=== PATIENT | male | born 1945 | race Caucasian/White ===

== ENCOUNTER → 2018-04-03 09:41 | Outpatient (CLI) | payer MEDICARE, SELFPAY ==
[2018-04-03 10:11] LABS: Add Manual Diff / Slide Review NO; Basophils Percent Auto 0.9 % (0-2); Eosinophils Percent Auto 6.3 % (2-4); Hematocrit 42.2 % (41-53); Hemoglobin 14.6 g/dL (13.5-17.5); Lymphocytes Percent Auto 18.6 % (25-40); Mean Corpuscular HGB Conc 34.5 % (30-36); Mean Corpuscular Hemoglobin 30.6 PG (26-34); Mean Corpuscular Volume 88.8 fL (80-100); Monocytes Percent Auto 11.3 % (3-14); Neutrophils Absolute Auto 5900 /uL (3000-5900); Neutrophils Percent Auto 62.9 % (50-75); Platelet Count 287 X10^3/uL (150-400); Red Blood Cell Count 4.75 X10^6/uL (4.5-5.9); Red Cell Distribution Width 13.2 % (11.6-14.8); White Blood Cell Count 9.4 X10^3/uL (4.5-11.0)
[2018-04-03 10:29] LABS: C-Reactive Protein Quant 5.2 mg/dL (<1.0); Erythrocyte Sedimentation Rate 7 MM/HR (0-15)
== END ==
PROVIDERS: PCP Family Medicine; Visit Provider Orthopaedic Surgery
DX: M25.462 Effusion, left knee (principal)
CPT/HCPCS: 36415; 85025; 85651; 86140

== ENCOUNTER 2018-04-03 16:05 | Inpatient (IN) | payer MEDICARE, SELFPAY ==
[2018-04-03] VITALS (11 sets, daily range): BP systolic 101–132; BP diastolic 65–83; PULSE 74–81; RESP 12–18; TEMP 36.1–37.2; O2SAT 95–100; BMI 25.0; BMI 25.9
[2018-04-03] MEDS: LACTATED RINGERS 1,000 ML 42 ML IV (17:05)
--- NOTE | 2018-04-03 17:06 | PM.PREOP ---
Pre-operative Note Interval Note Pre-op Check: Yes History & Physical Reviewed by Physician and Yes Exam Performed Changes: No
--- NOTE | 2018-04-03 17:06 | PM.OP.1 ---
Operative Date/Time/Diagnoses Date of procedure: 04/03/18 Time of procedure: 18:32 Pre-op diagnosis: Septic left knee after medial compartment arthroplasty Post-op diagnosis: same Procedure & Clinicians Procedure: Incision and drainage with polyethylene exchange left knee Same procedure as scheduled: Yes Indications: The patient presents today for incision and drainage of left septic knee after unicompartmental knee. The nature of the procedure including the risks and benefits, alternatives, postoperative course and expected outcome were discussed and all questions answered. Consent was obtained. Operative site confirmed and marked. Surgeon: Poncho Alexandre Click Yes if Unassisted: Yes Anesthesia Type: General and Local Operative Notes Findings: Significant erythema over the medial aspect of the knee. Purulent fluid was encountered within the knee. Cultures were taken and sent to the lab. The implant was intact. Closure Type: primary Specimen(s): other (Cultures) Implants & Drains: Hemovac drain. New polyethylene tray. Applied: drain(s) and implant(s) Estimated Blood Loss (mL): 20 Blood products transfused: none Procedure in detail: The patient was taken operative suite. The leg was prepped draped usual sterile fashion. The previous anterior incision was utilized and opened. Medial parapatellar arthrotomy was then made. There was purulent fluid within the knee. Cultures were taken and sent to the lab. The patient was then given both cefazolin and vancomycin IV. The polyethylene tray was removed. The implant was intact. The knee was then copiously irrigated with a total of 4 L of saline with Pulsavac irrigation. A new polyethylene tray was placed. A drain was placed within the knee joint. The knee was then filled with 1 g of powdered vancomycin. The arthrotomy was then closed with interrupted #1 Vicryl sutures. Subcutaneous tissue was closed with 2 Vicryl. The skin was closed with saritha. An Aquacel dressing was applied. The patient tolerated procedure well and was returned to current condition. Complications: none Condition: stable Disposition: PACU Plan for aftercare: The patient will be admitted to the hospital and started on IV antibiotics including cefazolin and vancomycin. We will await the results of his cultures and sensitivities. He will need a PICC line and a total of 6 weeks of IV antibiotics. Drain will be DC at 48 hr.
--- NOTE | 2018-04-03 17:51 | SUR.OPER ---
Supine on padded OR bed. Pillow under head, arms secured on padded armboards <90 degree abduction. Safety belt across torso. Non-operative leg secured with tape over blanket over lower leg. Operative leg secured in DeMayo/Anibal positioner. Foam padded brace at thigh of operative leg.
[2018-04-03] MEDS: CEFAZOLIN 2 GM/100 ML FROZ.PIGGY IV (17:56)
[2018-04-03] MEDS: VANCOMYCIN 1,000 MG VIAL 1000 MG INTRA-ARTI (18:04)
[2018-04-03] MEDS: VANCOMYCIN 1,000 MG/200 ML FROZ.PIGGY 200 MG IV (18:12)
[2018-04-03] MEDS: BUPIVACAINE 0.25% W/ EPI VIAL 50 ML INJ (18:18)
[2018-04-03] MEDS: OXYCODONE IR 5 MG TABLET PO (18:52)
--- NOTE | 2018-04-03 19:22 | SUR.PHASEI ---
patient transfered to room 212 with TRAVIS Gandhi. Vancomycin and LR still infusing. notified of patients admission and room.
[2018-04-03 19:46] LABS: Estimated Glomerular Filt Rate > 60.0 mL/min (>60)
[2018-04-03] MEDS: LACTATED RINGERS 1,000 ML 125 ML IV (19:59)
[2018-04-03] MEDS: SODIUM CHLORIDE 0.9% FLUSH 10 ML IV (20:05)
--- NOTE | 2018-04-03 22:50 | PC.NURSE ---
POST-OP Received pt at approximately 1905 via stretcher. A&Ox3, pleasant and cooperative. L knee with gonzalo wrap dressing and hemovac intact. pt c/o minimal pain rated 4/10 and denies need for pain medication at this time. ice pack maintained. pt declined scheduled evening ASA and tylenol as these are medication allergies. oriented to room and call light.
[2018-04-04] MEDS: CEFAZOLIN 2 GM/100 ML FROZ.PIGGY IV ×3 (01:23→19:40)
--- NOTE | 2018-04-04 03:16 | PC.NURSE ---
Cardiology Fellow S.N. Pt is alert and oriented x's 3. Pt is very pleasant and in good spirits. Left knee with gonzalo wrap dressing and hemovac. Hemovac intact and compressed. Assessed lower limbs for pitting, edema, tingling and circulation. pedal pulses present. Pt reports no tingling or numbness. Pt stated he was experiencing no pain and denied pain medication at this time. Refreshed ice pack and gave pt call light.
[2018-04-04 04:44] VITALS: BP 129/81; PULSE 69; RESP 14; TEMP 36.5; O2SAT 95
[2018-04-04] MEDS: LACTATED RINGERS 1,000 ML 125 ML IV (05:05)
[2018-04-04 05:39] LABS: Hematocrit 42.3 % (41-53); Hemoglobin 14.5 g/dL (13.5-17.5)
[2018-04-04] MEDS: VANCOMYCIN 1,000 MG/200 ML FROZ.PIGGY 200 MG IV ×2 (06:10→17:56)
[2018-04-04 08:00] VITALS: BP 128/60; PULSE 70; RESP 18; TEMP 36.6; O2SAT 98
--- NOTE | 2018-04-04 08:43 | CM.DANOTE ---
DCP: Case received, EMR reviewed and met with patient. Introduced self and role. DCP template completed with information currently available. Patient is a 72 year old male who admitted yesterday afternoon to the care of the hospitalist team. PCP: Dr. Snow. Payer: confirmed: Medicare. Patient diagnosed with septic left knee, had had an arthroplasty of the knee in January. Patient alert and oriented, pleasant, stated that he has been independent after initially having surgery, and he lives in [place] with his spouse. He has been working with outpatient therapy as well. P: DCP to continue to assess. Patient's goal is to return home, dependent upon on infection status and antibiotic therapy. Isatu Viera RN/Seafood Team Member
[2018-04-04] MEDS: ASPIRIN EC 81 MG TABLET PO ×2 (09:24→19:42)
[2018-04-04] MEDS: SODIUM CHLORIDE 0.9% FLUSH 10 ML IV (09:24)
--- NOTE | 2018-04-04 10:10 | CM.DPC ---
DCP Cont: Spoke to patient regarding discharge plan if he continues to need IV antibiotics. Gave Medicare choice list, and also mentioned the infusion clinic possibility. Stated that he would think about it when closer to discharge. Let him know that he would need to be here for 3 midnights to qualify for skilled stay. P: DCP to continue to assess, plan is still to be determined. Isatu Viera RN/Log Handling Equipment Operator
--- NOTE | 2018-04-04 10:50 | PT.IIE ---
Current Diagnoses Pyogenic arthritis, unspecified (04/03/18) Presence of left artificial knee joint (04/03/18) Surgery Performed Operation Date: 04/03/18 17:15 Actual Procedures p I&D Medial knee s/p Uni Knee; Poly exchange(Left) - Poncho Alexandre MD Medical History (Last Updated 04/03/18 @ 19:33 by Oksana Skinner RN) Sinusitis, chronic (Acute) Physical Therapy Inpatient Evaluation/Re-Eval M1 PT/OT-IP Prior Functional Status Start: 04/04/18 10:54 Freq: Status: Active Protocol: Document 04/04/18 10:50 [facility] (Rec: 04/04/18 11:05 [facility] [id number]) Medical Review Prior Functional Status Medical History Reviewed Yes Diet/Fluid Consistency Regular Communication WNL Mobility and Gait gait without device, community level distances Activities of Daily Living and IADL's indep. ADLs Social History Household Members spouse Living Arrangements House Number of Floors (Floors) Two Floors Number of Stairs To Enter/Railing? 8 steps B rails inside Home Environment Walk in Shower Home Equipment Straight Cane Additional Social History Comment pt had medial uni knee arthroplasty in January 2018, had just been d/c by PT prior to this infection. Pt underwent L knee I&D on 04/03/2018. M2 PT-IP Current Condition Start: 04/04/18 10:54 Freq: Status: Active Protocol: Document 04/04/18 10:50 RCC (Rec: 04/04/18 11:05 [facility] [id number]) Physical Therapy Current Condition Current Condition Evaluation Date 04/04/18 Treatment Diagnosis L uni knee I&D, impaired mobility Onset Date 04/03/18 Weight Bearing Status Weight Bearing Status Weight Bear as Tolerated M3 PT-IP Subjective Start: 04/04/18 10:54 Freq: Status: Active Protocol: Document 04/04/18 10:50 RCC (Rec: 04/04/18 11:05 [facility] [id number]) Subjective Physical Therapy Visit Type Type Initial Evaluation Visit Start Time 10:25 Visit Stop Time 10:50 Total Visit Minutes 25 Number of SYSTEM DISPATCHER Visits 0 Physical Therapy Visit Comments Patient Comments pt states that his knee is feeling better than prior to the I&D. M4 PT-IP Mobility and Gait Start: 04/04/18 10:54 Freq: Status: Active Protocol: Document 04/04/18 10:50 RCC (Rec: 04/04/18 11:05 [facility] [id number]) PT-Bed Mobility Assessment Supine to Sit Supine to Sit Independent Sit to Supine Sit to Supine Independent PT-Transfer Assessment Sit to and From Stand Sit to and from Stand Standby Assistance Equipment Transfer Assistive Device Gait Belt Transfers Transfer Destination Bed Toilet Transfer Technique Stand Step Pivot Transfer Ability Level of Assist Standby Assistance Comments Mobility Comments IV pole for UE assistance with standing and gait. Gait Assessment Gait Gait Assistance Required: Standby Assistance Distance (Feet) 300 Able to Maintain Weight Bearing Status Yes During Gait Assistive Devices Assistive Device Gait Belt Gait Deviations General Gait Pattern Decreased Stride Length Factors Limiting Gait Function Factors Limiting Gait Function Decreased Activity Tolerance Limited Range of Motion Pain Comments Gait Comments pt used IV pole for gait, mildly antalgic, limited knee extension due to swelling/pain PT-Balance Assessment Sitting Balance and Reactions Static Sitting Balance Ability Normal Dynamic Sitting Balance Ability Normal Standing Balance and Reactions Static Standing Balance Ability Good Dynamic Standing Balance Ability Good M5 PT-IP Objective Assessments Start: 04/04/18 10:54 Freq: Status: Active Protocol: Document 04/04/18 10:50 RCC (Rec: 04/04/18 11:05 [facility] [id number]) Orientation Orientation/Cognition Level of Alertness Alert Orientation Name Age Birthday Month Date Year Day of Week Place Situation Safety Awareness Understands Safety Issues Gross Range of Motion Lower Extremity ROM Assessment Left Impaired Impairments limited knee extension due to wrap, pain and swelling M6 PT-IP Treatment Start: 04/04/18 10:54 Freq: Status: Active Protocol: Document 04/04/18 10:50 RCC (Rec: 04/04/18 11:05 [facility] [id number]) Physical Therapy Treatment Education Education Provided Safety M7 PT-IP Assessment and Plan Start: 04/04/18 10:54 Freq: Status: Active Protocol: Document 04/04/18 10:50 RCC (Rec: 04/04/18 11:05 [facility] [id number]) PT Summary Assessment and Plan Potential Rehabilitation Potential Excellent Status of Condition at Evaluation Stable Summary Assessment Summary Post-I&D day 1 L knee. Pt able to ambulate using the IV pole for support, no loss of balance noted. Pt is below his prior functional level, and will need stair training prior to d/c. Depending on his course and how he recovers medically, he may need to return to OP PT if his strength and ROM do not return to baseline. Pt is appropriate for home d/c from PT after stair training. Goals Gait Goal Independent Gait Distance 300 Other Goals up/down 8 steps and SBA Days to Meet Goals 2 Frequency of Treatment Frequency Of Treatment Once a Day Treatment Plan Other Recommendations and Next Treatment stair & gait training. Focus Recommendations To Nursing Amount of Assist Needed Standby Assistance Discharge Recommendations PT Discharge Recommendations Home
--- NOTE | 2018-04-04 11:14 | PM.PNPO.1 ---
Subjective Date Patient Seen: 04/04/18 Time Patient Seen: 11:14 Interval history: Patient is postop day 1. Status post I and D with polyethylene exchange of left medial compartment arthroplasty by Dr. Alexandre. None no complaints of pain this morning. Has been up ambulating down the hallway. Currently receiving IV antibiotics, cefazolin and vancomycin. Awaiting results of cultures and sensitivities to determine which antibiotics the patient will be be discharged home with. also present in the room. Exam Vital Signs (past 8 hours): - 04/04/18 04:44 04/04/18 08:00 Temperature 97.7 F 97.8 F Pulse Rate 69 70 Respiratory Rate 14 18 Blood Pressure 129/81 128/60 Pulse Oximetry 95 98 Oxygen Delivery Method Room Air Narrative Exam Narrative: Patient in bed. Appears comfortable. Alert and orient x3. Left knee dressing intact with an Osman bandage overwrap. Hemovac drain in. Some swelling in the left knee. 5/5 left ankle strength. Bilateral calves soft nontender. Neurovascular status intact. Afebrile. Objective Labs Result Diagrams: 04/04/18 05:16 04/03/18 09:30 Labs: Laboratory Results - last 24 hr 04/03/18 04/04/18 09:30 05:16 Hgb 14.5 Hct 42.3 Creatinine 0.80 Estimated GFR > 60.0 Assessment & Plan Post-op Postoperative Procedures Operation Date: 04/03/18 17:15 Actual Procedures Side Surgeon p I&D Medial knee s/p Uni Knee; Poly exchange Left Poncho Alexandre MD Postop day 1. Hemovac drain to be left in for 1 more day then discontinued. Continue IV antibiotics with cefazolin and vancomycin. Microbiology culture still pending. Patient will need a PICC line and IV antibiotics for total 6 weeks. Activity as tolerated. Plan for DC home in next couple days. Quality VTE Deep Vein Thrombosis/Pulmonary Embolism Present on Admission: No
[2018-04-04 11:49] VITALS: BP 132/68; PULSE 80; RESP 18; TEMP 36.6; O2SAT 98
[2018-04-04 15:39] VITALS: PULSE 74; RESP 18; TEMP 36.8; O2SAT 96
[2018-04-04 19:35] VITALS: BP 111/58; PULSE 72; RESP 18; TEMP 36.8; O2SAT 92
[2018-04-05] VITALS (7 sets, daily range): BP systolic 103–122; BP diastolic 45–74; PULSE 65–86; RESP 18–19; TEMP 36.1–37; O2SAT 95–98
--- NOTE | 2018-04-05 01:28 | PC.NURSE ---
Addendum entered by Sabiha Falcon 04/05/18 06:59: Vanco on hold pending PICC Line. 30cc from hemovac. Hemovac removed and pressure dressing over site. Original Note: Addendum entered by Sabiha Falcon 04/05/18 06:58: IV DC'ed, Dr. Starkey ordered no PIV due to PICC line Order Original Note: Recruiting Consultant S.N. Pt is alert and oriented x's 3. Pt is in good spirits but very sleepy. He refused his SCDs due to interrupted sleep. Left knee with gonzalo wrap dressing and hemovac. Hemovac intact and compressed. Assessed lower limbs for pitting, edema, tingling and circulation. pedal pulses present. Pt stated he was experiencing no pain and denied pain medication at this time. Gave pt call light.
[2018-04-05] MEDS: CEFAZOLIN 2 GM/100 ML FROZ.PIGGY IV ×2 (02:59→20:34)
[2018-04-05 06:00] LABS: Add Manual Diff / Slide Review NO; Basophils Percent Auto 0.8 % (0-2); Eosinophils Percent Auto 3.2 % (2-4); Hematocrit 40.1 % (41-53); Hemoglobin 13.6 g/dL (13.5-17.5); Lymphocytes Percent Auto 23.4 % (25-40); Mean Corpuscular Hemoglobin 30.3 PG (26-34); Mean Corpuscular Volume 89.1 fL (80-100); Monocytes Percent Auto 7.9 % (3-14); Neutrophils Absolute Auto 6800 /uL (3000-5900); Neutrophils Percent Auto 64.7 % (50-75); Platelet Count 256 X10^3/uL (150-400); Red Blood Cell Count 4.51 X10^6/uL (4.5-5.9); Red Cell Distribution Width 13.1 % (11.6-14.8); White Blood Cell Count 10.5 X10^3/uL (4.5-11.0)
[2018-04-05 06:26] LABS: Vancomycin Trough 10.1 ug/mL (10-20)
[2018-04-05] MEDS: VANCOMYCIN 1,000 MG/200 ML FROZ.PIGGY 200 MG IV ×2 (06:35→21:03)
--- NOTE | 2018-04-05 07:45 | PM.PNPO.1 ---
Subjective Date Patient Seen: 04/05/18 Time Patient Seen: 07:46 Interval history: He is fairly comfortable since he has had his washout. Exam Vital Signs (past 8 hours): - 04/05/18 00:20 04/05/18 03:05 Temperature 97.9 F 96.9 F L Pulse Rate 86 86 Respiratory Rate 18 19 Blood Pressure 114/71 116/69 Pulse Oximetry 95 96 Oxygen Delivery Method Room Air Const Orientation: alert and oriented x3 Extrem Other: Left knee dressing clean dry intact. Soft calf easily wiggles toes. drain pulled earlier but 30/10 over last two shifts Objective Labs Result Diagrams: 04/05/18 05:30 04/03/18 09:30 Labs: Laboratory Results - last 24 hr 04/05/18 04/05/18 05:30 05:30 WBC 10.5 RBC 4.51 Hgb 13.6 Hct 40.1 L MCV 89.1 MCH 30.3 MCHC 34.0 RDW 13.1 Plt Count 256 Neut % (Auto) 64.7 Lymph % (Auto) 23.4 L [place] % (Auto) 7.9 Eos % (Auto) 3.2 Baso % (Auto) 0.8 Neut # (Auto) 6800 H Vancomycin Trough 10.1 Gram stain had scant gm (+) cocci and occasional epithelial cells, NGTD on cultures Assessment & Plan Post-op Postoperative Procedures Operation Date: 04/03/18 17:15 Actual Procedures Side Surgeon p I&D Medial knee s/p Uni Knee; Poly exchange Left Poncho Alexandre MD No growth to date on his cultures. We will give this 1 more day for growth. He is currently on vancomycin and Ancef. He should get his PICC line today. Probable discharge home on IV antibiotics tomorrow. Quality VTE Deep Vein Thrombosis/Pulmonary Embolism Present on Admission: No
[2018-04-05] MEDS: ASPIRIN EC 81 MG TABLET PO ×2 (08:37→21:03)
--- NOTE | 2018-04-05 11:10 | PC.NURSE ---
upon start of shift patient had no IV access (previous IV infiltrated and removed per retail shift supervisor RN0. Able to start new IV to right AC to infuse pending vancomycin as ordered. Infusion given slowly as patient has had sensitivity with veins and has now had infiltrations with previous 2 IV's. Near end of infusion, patient reported area starting to itch and feel swelling. Infusion stopped and area elevated and warm compress applied to area. Clarifying availability of patient to get PICC line today for further antibiotics. Waiting for return call for information. Patient comfortable and resting in bed sleeping at this time. Continue to follow.
--- NOTE | 2018-04-05 14:13 | CM.DPC ---
DCP/continued: Reviewed chart. Patient expected to have PICC line placed today for local intermodal truck driver IV abx. This CRUISE AGENT asked to touch base with patient about d/c plan this afternoon. Met with patient and spouse/Micheline at bedside explained CM/SW role. Patient alert and oriented during visit. Patient and spouse aware that patient will need long-term IV abx. Patient hopes to be able to do this as outpatient. At this time cultures pending therefore, dosing frequency, and abx unknown. Patient currently on Ancef q8hrs and vanco q12hrs. Patient and spouse aware that if patient continues to need multiple abx at different times of the day that best option may be SNF. Patient also aware of private pay option in the home and does not feel that this is feasible. Contracted Medicare SNF list provided to patient. Patient and spouse provided CRUISE AGENT with permission to give his name to [facility] for review. CRUISE AGENT placed call to [facility] and they will review for possible admit. [facility] aware that cultures pending and that first patient choice is for patient to go home and come to [facility] for outpatient IV abx instead of SNF. P: Home with outpatient IV vs. SNF. Patient and spouse aware that DCP picking up case tomorrow is DILAN Moctezuma
--- NOTE | 2018-04-05 14:53 | PC.NURSE ---
[facility] was notified and coming in to place PICC line this afternoon as soon as available. Patient updated on plan of care. Patient remains without complaint. Left knee dressing remains intact, +CMS, ambulating without difficulty. Call light within reach.
--- NOTE | 2018-04-05 16:19 | PT.IPTN ---
Current Diagnoses Pyogenic arthritis, unspecified (04/03/18) Presence of left artificial knee joint (04/03/18) Surgery Performed Operation Date: 04/03/18 17:15 Actual Procedures p I&D Medial knee s/p Uni Knee; Poly exchange(Left) - Poncho Alexandre MD Physical Therapy Treatment Note M2 PT-IP Current Condition Start: 04/04/18 10:54 Freq: Status: Active Protocol: Document 04/04/18 10:50 RCC (Rec: 04/04/18 11:05 RCC [id number]) Physical Therapy Current Condition Current Condition Evaluation Date 04/04/18 Treatment Diagnosis L uni knee I&D, impaired mobility Onset Date 04/03/18 Weight Bearing Status Weight Bearing Status Weight Bear as Tolerated M3 PT-IP Subjective Start: 04/04/18 10:54 Freq: Status: Active Protocol: Document 04/05/18 15:15 [facility] (Rec: 04/05/18 16:19 [facility] [id number]) Subjective Physical Therapy Visit Type Type Treatment Note Visit Start Time 15:15 Visit Stop Time 15:35 Total Visit Minutes 20 Number of FINISHER SPECIAL STOCKS Visits 1 Physical Therapy Visit Comments Patient Comments Pt willing to ambulate. Therapy Pain Assessment Pain When Pain Assessed During Mobility Pain Present Pain Present Denied Pain M4 PT-IP Mobility and Gait Start: 04/04/18 10:54 Freq: Status: Active Protocol: Document 04/05/18 15:15 [facility] (Rec: 04/05/18 16:19 [facility] [id number]) PT-Transfer Assessment Sit to and From Stand Sit to and from Stand Standby Assistance Equipment Transfer Assistive Device Gait Belt Transfers Transfer Destination Chair Transfer Technique Stand Step Pivot Transfer Ability Level of Assist Standby Assistance Comments Mobility Comments Pt able to transfer w/o AD. Gait Assessment Gait Gait Assistance Required: Contact Guard Assist Distance (Feet) 400 Able to Maintain Weight Bearing Status Yes During Gait Assistive Devices Assistive Device Gait Belt Factors Limiting Gait Function Factors Limiting Gait Function Decreased Activity Tolerance Limited Range of Motion Pain Comments Gait Comments Pt gait is mildly antalgic, limited knee extension due to swelling. Pt able to ambulate in mon without AD/CGA. Stair Climbing Assessment Evaluation Level of Assist On Stairs Independent Devices Stair Climbing Assistive Devices Left Railing Right Railing Technique/Endurance Stair Climbing Direction Ascend and Descend Stair Climbing Technique Step Over Step Step to Step Number of Steps Climbed 3 Query Text: Stair Climbing Set # Repetitions (reps) 2 Comments Stair Climbing Comments Pt performed step over step ascending and step to step descenting. M5 PT-IP Objective Assessments Start: 04/04/18 10:54 Freq: Status: Active Protocol: Document 04/04/18 10:50 RCC (Rec: 04/04/18 11:05 [facility] [id number]) Orientation Orientation/Cognition Level of Alertness Alert Orientation Name Age Birthday Month Date Year Day of Week Place Situation Safety Awareness Understands Safety Issues Gross Range of Motion Lower Extremity ROM Assessment Left Impaired Impairments limited knee extension due to wrap, pain and swelling M6 PT-IP Treatment Start: 04/04/18 10:54 Freq: Status: Active Protocol: Document 04/04/18 10:50 RCC (Rec: 04/04/18 11:05 RCC [id number]) Physical Therapy Treatment Education Education Provided Safety M7 PT-IP Assessment and Plan Start: 04/04/18 10:54 Freq: Status: Active Protocol: Document 04/05/18 15:15 [facility] (Rec: 04/05/18 16:19 [facility] [id number]) PT Summary Assessment and Plan Potential Rehabilitation Potential Excellent Summary Assessment Summary Pt ambulated w/o AD and no LOB . Pt successfully trialed stairs IND. Pt able to d/c home when medically stable. Goals Gait Goal Independent Gait Distance 300 Other Goals up/down 8 steps and SBA Days to Meet Goals 2 Frequency of Treatment Frequency Of Treatment Once a Day Treatment Plan Other Recommendations and Next Treatment gait training. Focus Recommendations To Nursing Amount of Assist Needed Standby Assistance Discharge Recommendations PT Discharge Recommendations Home
--- NOTE | 2018-04-05 19:31 | DI.RAD.S_ITS ---
PROCEDURE: XR CHEST FOR PICC 1V INDICATIONS: picc line placement TECHNIQUE: One view of the chest was acquired. COMPARISON: None. FINDINGS: Surgical changes and devices: There is a left PICC, the tip of which is projected over the cavoatrial junction. Lungs and pleura: No pleural effusions or pneumothorax. Lungs are clear. Mediastinum: Mediastinal contours appear normal. Heart size is normal. Bones and chest wall: No suspicious bony lesions. Overlying soft tissues appear unremarkable. IMPRESSION: No acute cardiopulmonary findings. Dictated by: Shani Ferrari M.D. on 04/05/2018 at 19:48 Approved by: Shani Ferrari M.D. on 04/05/2018 at 19:48
--- NOTE | 2018-04-05 20:40 | PC.NURSE ---
PICC PLACED TO LUE ANTIBIOTICS STARTED
[2018-04-05] MEDS: ACETAMINOPHEN 325 MG TABLET 975 MG PO (21:03)
[2018-04-06] MEDS: CEFAZOLIN 2 GM/100 ML FROZ.PIGGY IV ×2 (04:02→12:04)
[2018-04-06 04:35] VITALS: BP 113/62; PULSE 68; RESP 17; TEMP 36.4; O2SAT 95
--- NOTE | 2018-04-06 07:54 | P.PN_ITS ---
Subjective Date Patient Seen: 04/06/18 Time Patient Seen: 07:46 Interval history: Post op day 3 status post I&D Medial knee s/p Uni Knee with Dr. Alexandre. Patient is sitting upright in bed comfortably without any signs of distress. Patient reports that he is in no pain at this time. He is not currently on any pain medications at this time. Patient reports that he has not had a bowel movement since post op. Patient denies any fever, SOB, chest pain, nausea or vomiting. Overall patient is doing great. Exam Vital Signs (past 8 hours): - 04/06/18 04:35 Temperature 97.5 F L Pulse Rate 68 Respiratory Rate 17 Blood Pressure 113/62 Pulse Oximetry 95 Oxygen Delivery Method Room Air Narrative Exam Narrative: Patient is AOx3. Patient is a well developed male in no acute distress. PICC line noted in L upper arm. Left knee SEUN bandage noted. Left knee dressing is CDI. Radial and dorsalis pedis pulses are 2+ and symmetric. Sensation to light touch intact bilaterally on the LE. No neurological deficit noted. Strength is 5/5 in dorsiflex, plantarflex and presto log operator bilaterally. Calfs are non tender, soft and compressible. Objective Labs Result Diagrams: 04/05/18 05:30 04/03/18 09:30 Assessment & Plan Post-op Postoperative Procedures Operation Date: 04/03/18 17:15 Actual Procedures Side Surgeon p I&D Medial knee s/p Uni Knee; Poly exchange Left Poncho Alexandre MD Postoperative day: 3 Postoperative status: doing well Postoperative plan: routine post-op care Postoperative plan narrative: No growth to date on cultures. Will continue to wait until final growth results. Currently on Vancomycin and Ancef. Start Dulcolax for constipation. Likely to be discharged home on IV antibiotics later today or tomorrow. Time Spent With Patient less than 15 minutes Quality VTE Deep Vein Thrombosis/Pulmonary Embolism Present on Admission: No
[2018-04-06 08:37] VITALS: BP 128/75; PULSE 68; RESP 17; TEMP 36.3; O2SAT 97
[2018-04-06] MEDS: ASPIRIN EC 81 MG TABLET PO (09:17)
[2018-04-06] MEDS: VANCOMYCIN 1,000 MG/200 ML FROZ.PIGGY 200 MG IV (09:25)
--- NOTE | 2018-04-06 09:27 | PT.IPTN ---
Current Diagnoses Pyogenic arthritis, unspecified (04/03/18) Presence of left artificial knee joint (04/03/18) Surgery Performed Operation Date: 04/03/18 17:15 Actual Procedures p I&D Medial knee s/p Uni Knee; Poly exchange(Left) - Poncho Alexandre MD Physical Therapy Treatment Note M2 PT-IP Current Condition Start: 04/04/18 10:54 Freq: Status: Active Protocol: Document 04/04/18 10:50 RCC (Rec: 04/04/18 11:05 RCC [id number]) Physical Therapy Current Condition Current Condition Evaluation Date 04/04/18 Treatment Diagnosis L uni knee I&D, impaired mobility Onset Date 04/03/18 Weight Bearing Status Weight Bearing Status Weight Bear as Tolerated M3 PT-IP Subjective Start: 04/04/18 10:54 Freq: Status: Active Protocol: Document 04/06/18 08:55 CLB (Rec: 04/06/18 09:27 CLB [id number]) Subjective Physical Therapy Visit Type Type Treatment Note Visit Start Time 08:55 Visit Stop Time 09:18 Total Visit Minutes 23 Number of LARGE SHEETFED PRESS OPERATOR Visits 2 Physical Therapy Visit Comments Patient Comments Pt willing to ambulate. Therapy Pain Assessment Pain When Pain Assessed During Mobility Pain Present Pain Present Denied Pain M4 PT-IP Mobility and Gait Start: 04/04/18 10:54 Freq: Status: Active Protocol: Document 04/06/18 08:55 CLB (Rec: 04/06/18 09:27 CLB [id number]) PT-Bed Mobility Assessment Supine to Sit Supine to Sit Independent Sit to Supine Sit to Supine Independent PT-Transfer Assessment Sit to and From Stand Sit to and from Stand Standby Assistance Equipment Transfer Assistive Device Gait Belt Transfers Transfer Destination Bed Transfer Technique Stand Step Pivot Transfer Ability Level of Assist Standby Assistance Comments Mobility Comments Pt able to transfer w/o AD. Gait Assessment Gait Gait Assistance Required: Standby Assistance Distance (Feet) 400 Assistive Devices Assistive Device Gait Belt Factors Limiting Gait Function Factors Limiting Gait Function Decreased Activity Tolerance Limited Range of Motion Pain Comments Gait Comments Pt gait is mildly antalgic, limited knee extension due to swelling. Pt able to ambulate in mon without AD/SBA. Stair Climbing Assessment Evaluation Level of Assist On Stairs Independent Devices Stair Climbing Assistive Devices Left Railing Right Railing Technique/Endurance Stair Climbing Direction Ascend and Descend Stair Climbing Technique Step Over Step Number of Steps Climbed 3 Query Text: Stair Climbing Set # Repetitions (reps) 3 M5 PT-IP Objective Assessments Start: 04/04/18 10:54 Freq: Status: Active Protocol: Document 04/04/18 10:50 RCC (Rec: 04/04/18 11:05 RCC [id number]) Orientation Orientation/Cognition Level of Alertness Alert Orientation Name Age Birthday Month Date Year Day of Week Place Situation Safety Awareness Understands Safety Issues Gross Range of Motion Lower Extremity ROM Assessment Left Impaired Impairments limited knee extension due to wrap, pain and swelling M6 PT-IP Treatment Start: 04/04/18 10:54 Freq: Status: Active Protocol: Document 04/04/18 10:50 RCC (Rec: 04/04/18 11:05 RCC [id number]) Physical Therapy Treatment Education Education Provided Safety M7 PT-IP Assessment and Plan Start: 04/04/18 10:54 Freq: Status: Active Protocol: Document 04/06/18 08:55 CLB (Rec: 04/06/18 09:27 CLB [id number]) PT Summary Assessment and Plan Potential Rehabilitation Potential Excellent Summary Assessment Summary Pt ambulated w/o AD/SBA and no LOB. Pt successfully trialed stairs IND. Pt able to d/c home when medically stable. Goals Gait Goal Independent Gait Distance 300 Other Goals up/down 8 steps and SBA Days to Meet Goals 2 Frequency of Treatment Frequency Of Treatment Once a Day Treatment Plan Other Recommendations and Next Treatment gait training. Focus Recommendations To Nursing Amount of Assist Needed Standby Assistance Discharge Recommendations PT Discharge Recommendations Home
[2018-04-06] MEDS: BISACODYL 5 MG TABLET PO (12:03)
[2018-04-06] MEDS: SODIUM CHLORIDE 0.9% FLUSH 10 ML IV (12:05)
[2018-04-06 13:41] VITALS: BP 100/60; PULSE 66; RESP 16; TEMP 36.8; O2SAT 96
--- NOTE | 2018-04-06 14:20 | PT.IPTN ---
Current Diagnoses Pyogenic arthritis, unspecified (04/03/18) Presence of left artificial knee joint (04/03/18) Surgery Performed Operation Date: 04/03/18 17:15 Actual Procedures p I&D Medial knee s/p Uni Knee; Poly exchange(Left) - Poncho Alexandre MD Physical Therapy Discharge Note Physical Therapy Visit Type Type Discharge Summary Notes Pt has reached his optimal functional status and has no other acute PT goals/needs. Acute PT will sign off with the anticipation that pt will continue to mobilize with nursing staff.
--- NOTE | 2018-04-06 14:51 | PC.NURSE ---
Shift summary: Alert and oriented X3. Up indep in room, gait steady without assistive device. Showered independently today. Aquacel dressing to L knee C/D/I. CMS+, PP+. Denies pain or discomfort. Denies fever/chills. Still waiting on final sensitivities on wound culture. Contact isolation dc'd (not Staph in the wound culture). PICC line in LUE working well and with good blood return. Able to make needs known and calls appropriately,
--- NOTE | 2018-04-06 15:31 | CM.DPC ---
Addendum entered by Mireille Lamas LPN 04/07/18 10:08: Alerted this morning by ortho NAOMIE Martinez that Dr. Alexandre d/c'd pt to home last night after deciding on IV Vanco 2x day for 6 weeks and told him that [facility] would follow up today on the [facility] referral. Left a copy of the script for same. Received then a call at 0800 from lab saying that this pt was there and wondering how to get his antibitic. Directed pt to [facility] with idea to wait until the referral was completed. Called Dixie/ly at Infusion Clinic. At her direction did fax over the script. She is able to access the EMR for more information. She said she would set pt up on the schedule this morning. Original Note: DCP: continued: case received, EMR reviewed, conferred with TRAVIS Ontiveros and met with pt and his . Micheline. Went over the details of the ortho NAOMIE Stout's note of early this morning. Pt and Micheline identify there plan at d/c as home with the infusion clinic antibiotics as an outpt. Pt confirms he does not have a Medicare supplement nor Medicare Pt D plan. He does have a [employer] plan but says this is N/A as his issues are related to the uni knee surgery and all has been under the Medicare. He says he is a limited user of health care at this point and thus has preferred to pay out of pocket for what Medicare does not cover. His has chronic medical issues and extensive insuranance coverage. Both are aware that Medicare would cover his care for 20 days at a snf with the antibiotic need but even though it may be more costly to them they prefer the Infusion clinic. P: at this point pt is very eager for home but aware of the importance of waiting for the final determination of antibiotic therapy. This is reportedly to be only one or 2 times per day. If all in place by tomorrow morning pt will have the one dose here and then go home and have next dose at Infusion clinic. Agreed to check in early tomorrow and follow accordingly. P: home tomorrow if all in place as per above
--- NOTE | 2018-04-06 16:14 | PM.DS.1 ---
History of Present Illness Date Patient Seen: 04/06/18 Time Patient Seen: 16:14 Chief complaint: [id number] I&D LEFT KNEE W/POLY LINER EXCH Narrative: The patient presented for incision and drainage of left septic knee after unicompartmental knee. The nature of the procedure including the risks and benefits, alternatives, postoperative course and expected outcome were discussed and all questions answered. Consent was obtained. Operative site confirmed and marked. Discharge Providers Date of admission: 04/03/18 16:05 Primary care physician: Tristan Snow MD Consults: 04/03/18 19:16 Consult to Discharge Planning Routine Comment: Consult to Physical Therapy Evaluate & Treat Comment: Physician Instructions: postop TKA protocol Consult to Respiratory Therapy Evaluate & Treat Comment: Physician Instructions: Evaluate and treat Discharge provider: Argelia Chan PA-C Discharge Date: 04/06/18 Summary Discharge Diagnosis: Septic left knee after medial compartment arthroplasty Hospital Course: Patient admitted to hospital for the above mentioned procedure. Patient tolerated procedure well and transferred to floor and seen by physical therapy who recommended he be discharged home. Pain is well managed. Patient is home to assist him. Patient is ready to go home and is safe to do so. Cultures grew Enterococcus of the L knee, he will be discharged on IV Vancomycin. Status at Discharge Functional status at discharge: uses cane/walker Overall status at discharge: patient is progressing back to baseline Time Spent with Patient Less than 30 minutes Exam Vital Signs (past 8 hours): - 04/06/18 08:37 04/06/18 13:41 Temperature 97.4 F L 98.2 F Pulse Rate 68 66 Respiratory Rate 17 16 Blood Pressure 128/75 100/60 Pulse Oximetry 97 96 Oxygen Delivery Method Room Air Narrative Exam Narrative: Patient is AOx3. He is a pleasant male in no acute distress. L knee dressing is CDI. Dorsalis pedis and radial pulses 2+ and symmetric. Sensation to light touch intact in LE bilaterally. Muscle strength 5/5 in dorsiflexion, plantarflexion and manager news bilaterally. Calfs are non tender, soft and compressible bilaterally. Objective Labs Result Diagrams: 04/05/18 05:30 04/03/18 09:30 Discharge Plan Discharge Plan Patient Disposition: Home Discharge comment: Take Tylenol for pain as needed. Discharge Med Rec/Prescriptions Prescriptions: New vancomycin 1,000 mg Recon Soln 1 gram IV BID 42 Days Qty: 84 RF: 0 Continue aspirin [Aspirin Low Dose] 81 mg Tablet,Delayed Release (Dr/Ec) 81 mg PO DAILY RF: 0 loratadine 10 mg Tablet 10 mg PO BEDTIME RF: 0 Follow up/Referrals: Poncho Alexandre MD [Physician] - (Follow Up at [facility] in 10-14 days. Call to office to schedule appointment or address any concerns.) Provider Discharge Instructions Diet: Diet as Tolerated Activity: as tolerated. use cane/walker as needed for ambulation Cold/Heat Therapy: ice compress as needed Skin/Wound/Dressing Care Report to your healthcare provider any signs of infection, such as:: chills, fever, night sweats, increased pain and unusual drainage Dressing: keep clean and dry Visit Report/Discharge Packet Instructions: DI for Incision and Drainage of a Joint Visit Report Forms: Stroke Signs & Symptoms Discharge Data Primary Care Provider: Tristan Snow Attending Provider: Poncho Alexandre Admit Date/Time: 04/03/18 16:05 Quality VTE Deep Vein Thrombosis/Pulmonary Embolism Present on Admission: No
--- NOTE | 2018-04-06 16:24 | P.DS_ITS ---
History of Present Illness Date Patient Seen: 04/06/18 Time Patient Seen: 16:14 Chief complaint: [id number] I&D LEFT KNEE W/POLY LINER EXCH Narrative: The patient presented for incision and drainage of left septic knee after unicompartmental knee. The nature of the procedure including the risks and benefits, alternatives, postoperative course and expected outcome were discussed and all questions answered. Consent was obtained. Operative site confirmed and marked. Discharge Providers Date of admission: 04/03/18 16:05 Primary care physician: Tristan Snow MD Consults: 04/03/18 19:16 Consult to Discharge Planning Routine Comment: Consult to Physical Therapy Evaluate & Treat Comment: Physician Instructions: postop TKA protocol Consult to Respiratory Therapy Evaluate & Treat Comment: Physician Instructions: Evaluate and treat Discharge provider: Argelia Chan PA-C Discharge Date: 04/06/18 Summary Discharge Diagnosis: Septic left knee after medial compartment arthroplasty Hospital Course: Patient admitted to hospital for the above mentioned procedure. Patient tolerated procedure well and transferred to floor and seen by physical therapy who recommended he be discharged home. Pain is well managed. Patient is home to assist him. Patient is ready to go home and is safe to do so. Cultures grew Enterococcus of the L knee, he will be discharged on IV Vancomycin. Status at Discharge Functional status at discharge: uses cane/walker Overall status at discharge: patient is progressing back to baseline Time Spent with Patient Less than 30 minutes Exam Vital Signs (past 8 hours): - 04/06/18 08:37 04/06/18 13:41 Temperature 97.4 F L 98.2 F Pulse Rate 68 66 Respiratory Rate 17 16 Blood Pressure 128/75 100/60 Pulse Oximetry 97 96 Oxygen Delivery Method Room Air Narrative Exam Narrative: Patient is AOx3. He is a pleasant male in no acute distress. L knee dressing is CDI. Dorsalis pedis and radial pulses 2+ and symmetric. Sensation to light touch intact in LE bilaterally. Muscle strength 5/5 in dorsiflexion, plantarflexion and motel front desk clerk bilaterally. Calfs are non tender, soft and compressible bilaterally. Objective Labs Result Diagrams: 04/05/18 05:30 04/03/18 09:30 Discharge Plan Discharge Plan Patient Disposition: Home Discharge comment: Take Tylenol for pain as needed. Discharge Med Rec/Prescriptions Prescriptions: New vancomycin 1,000 mg Recon Soln 1 gram IV BID 42 Days Qty: 84 RF: 0 Continue aspirin [Aspirin Low Dose] 81 mg Tablet,Delayed Release (Dr/Ec) 81 mg PO DAILY RF: 0 loratadine 10 mg Tablet 10 mg PO BEDTIME RF: 0 Follow up/Referrals: Poncho Alexandre MD [Physician] - (Follow Up at [facility] in 10-14 days. Call to office to schedule appointment or address any concerns.) Provider Discharge Instructions Diet: Diet as Tolerated Activity: as tolerated. use cane/walker as needed for ambulation Cold/Heat Therapy: ice compress as needed Skin/Wound/Dressing Care Report to your healthcare provider any signs of infection, such as:: chills, fever, night sweats, increased pain and unusual drainage Dressing: keep clean and dry Visit Report/Discharge Packet Instructions: DI for Incision and Drainage of a Joint Visit Report Forms: Stroke Signs & Symptoms Discharge Data Primary Care Provider: Tristan Snow Attending Provider: Poncho Alexandre Admit Date/Time: 04/03/18 16:05 Quality VTE Deep Vein Thrombosis/Pulmonary Embolism Present on Admission: No
--- NOTE | 2018-04-06 17:26 | PC.NURSE ---
Discharge Note Pt A&O, VSS, 96% on RA. No complaints of pain. Discharge instructions given without question or concerns. All belongings and discharge instructions sent to pt. Pt aware of need to follow-up twice a day with the infusion clinic for IV antibiotics. Prescription given to CM to arrange infusions starting tomorrow. Pt wheeled down to personal vehicle with .
== END 2018-04-06 17:25 | disposition home or self-care (01) | DRG 486 ==
PROVIDERS: Physician Assistant; Admitting Provider Orthopaedic Surgery; Family Provider Family Medicine; PCP Family Medicine; Visit Provider Orthopaedic Surgery
PROC: 0SPD09Z Removal of Liner from Left Knee Joint, Open Approach (ICD-10-PCS; CPT 27446; principal; 2018-04-03 17:15)
DX: T84.54XA Infection and inflammatory reaction due to internal left knee prosthesis, initial encounter (principal); M00.9 Pyogenic arthritis, unspecified; Y79.2 Prosthetic and other implants, materials and accessory orthopedic devices associated with adverse incidents; B95.2 Enterococcus as the cause of diseases classified elsewhere
CPT/HCPCS: 36415; 36569; 80202; 82565; 85014; 85018; 85025; 85651; 86140; 87070; 87075; 87077; 87186; 87205; 97116; 97161; 97530; C1776; J0690; J1100; J2405; J2704; J3010; J3370

== ENCOUNTER → 2018-04-10 08:19 | Outpatient (CLI) | payer MEDICARE, SELFPAY ==
[2018-04-03 19:25] VITALS: BMI 25.9
[2018-04-10 09:39] LABS: Vancomycin Trough 12.6 ug/mL (10-20)
[2018-04-11 09:18] LABS: Vancomycin Trough 15.3 ug/mL (10-20)
== END ==
PROVIDERS: PCP Family Medicine; Visit Provider Physician Assistant Surgical
DX: M00.9 Pyogenic arthritis, unspecified (principal); T81.4XXA Infection following a procedure, initial encounter
CPT/HCPCS: 80202

== ENCOUNTER → 2018-05-06 12:29 | Outpatient (CLI) | payer MEDICARE, SELFPAY ==
[2018-04-03 19:25] VITALS: BMI 25.9
--- NOTE | 2018-05-06 12:32 | DI.RAD.S_ITS ---
PROCEDURE: FL GUIDED PICC PLACEMENT INDICATIONS: picc line placement COMPARISON: None. FINDINGS: PICC was placed by the intravenous therapy team from the right side. Fluoroscopic spot film demonstrates tip of PICC projected over the cavoatrial junction. IMPRESSION: Tip of PICC is projected over the cavoatrial junction. Dictated by: Shani Ferrari M.D. on 05/06/2018 at 17:00 Approved by: Shani Ferrari M.D. on 05/06/2018 at 17:01
== END ==
PROVIDERS: Visit Provider Orthopaedic Surgery
DX: Z95.828 Presence of other vascular implants and grafts (principal)
CPT/HCPCS: 36569; 77001

== ENCOUNTER → 2018-05-11 13:26 | Outpatient (CLI) | payer MEDICARE, SELFPAY ==
[2018-04-03 19:25] VITALS: BMI 25.9
[2018-05-11 14:15] LABS: Add Manual Diff / Slide Review NO; Basophils Percent Auto 1.5 % (0-2); Eosinophils Percent Auto 10.8 % (2-4); Hematocrit 41.7 % (41-53); Hemoglobin 13.9 g/dL (13.5-17.5); Lymphocytes Percent Auto 15.9 % (25-40); Mean Corpuscular HGB Conc 33.2 % (30-36); Mean Corpuscular Hemoglobin 29.4 PG (26-34); Mean Corpuscular Volume 88.5 fL (80-100); Monocytes Percent Auto 11.2 % (3-14); Neutrophils Absolute Auto 3600 /uL (3000-5900); Neutrophils Percent Auto 60.6 % (50-75); Platelet Count 213 X10^3/uL (150-400); Red Blood Cell Count 4.71 X10^6/uL (4.5-5.9); Red Cell Distribution Width 14.1 % (11.6-14.8); White Blood Cell Count 5.9 X10^3/uL (4.5-11.0)
[2018-05-11 14:37] LABS: C-Reactive Protein Quant 0.8 mg/dL (<1.0)
[2018-05-11 14:54] LABS: Erythrocyte Sedimentation Rate 4 MM/HR (0-15)
== END ==
PROVIDERS: Family Provider Family Medicine; Visit Provider Orthopaedic Surgery
DX: T84.54XA Infection and inflammatory reaction due to internal left knee prosthesis, initial encounter (principal); Z96.652 Presence of left artificial knee joint
CPT/HCPCS: 36415; 85025; 85651; 86140

== ENCOUNTER 2018-05-18 08:30 | Oncology outpatient (ONC) | payer MEDICARE, SELFPAY ==
[2018-04-03 19:25] VITALS: BMI 25.9
[2018-04-07] MEDS: VANCOMYCIN 1,000 MG/200 ML FROZ.PIGGY 200 MG IV ×2 (09:21→20:32)
[2018-04-07 09:32] VITALS: BP 144/84; PULSE 63; RESP 16; TEMP 36.4; O2SAT 99
--- NOTE | 2018-04-07 09:46 | ONC.SCHED ---
Patient wanted an estimate on what is copay amount would be. Spoke to Sabiha Gill in patient accounts and she did a rough estimate that would be about $50 a dose and since he gets this twice a day it would be $100 a day. The patient was told this was a rough estimate by Shilpi Askew and he was ok with that.
[2018-04-08] MEDS: VANCOMYCIN 1,000 MG/200 ML FROZ.PIGGY 200 MG IV ×2 (08:41→20:24)
[2018-04-08 08:45] VITALS: BP 123/88; PULSE 69; RESP 16; TEMP 36.7; O2SAT 98
[2018-04-08 20:29] VITALS: BP 121/74; PULSE 81; RESP 20; TEMP 36.3
[2018-04-08 21:33] VITALS: BP 106/77; PULSE 77; RESP 18; TEMP 36.6
[2018-04-09] MEDS: VANCOMYCIN 1,000 MG/200 ML FROZ.PIGGY 200 MG IV (08:50)
[2018-04-09 09:02] LABS: Estimated Glomerular Filt Rate > 60.0 mL/min (>60)
[2018-04-09 09:23] VITALS: BP 108/71; PULSE 66; RESP 16; TEMP 36.3; O2SAT 98
[2018-04-09 09:39] LABS: Vancomycin Trough 9.3 ug/mL (10-20)
[2018-04-09 20:30] VITALS: BP 111/69; PULSE 82; RESP 18; TEMP 36.8
[2018-04-09] MEDS: VANCOMYCIN 1,500 MG in SODIUM CHLORIDE 0.9% 500 ML 333.333 ML IV (20:35)
[2018-04-09 22:03] VITALS: O2SAT 99
--- NOTE | 2018-04-09 22:03 | PC.NURSE ---
Pt ambulatory to room 202 for vancomycin infusion. Vital signs taken and recorded. Dual lumen PICC to left upper arm with scant amount fresh blood noted around insertion site contained within tegaderm and distally to outer edges of coversite dressing. Pt explains this dressing was changed this morning and pt states dressing is requiring daily changes d/t the same scenario. Offered to change dressing for pt and pt declined. Will cover with absorbent dressing (ABD pad) and netting following infusion. Pt verbalizes agreement with this plan. Able to draw blood easily from white port and flush with saline without difficulty prior to vanco infusion.
--- NOTE | 2018-04-10 09:24 | PC.NURSE ---
Pt arrived for vanco infusion, Pt settled to room. VSS.
[2018-04-10 09:25] VITALS: BP 119/68; PULSE 70; RESP 16; TEMP 36.6
--- NOTE | 2018-04-10 11:38 | PC.NURSE ---
Pt tolerated ABX infusion. DL PICC flushed appropriately at end of tranfusion. Pt collected belongings and on the way home.
[2018-04-10] MEDS: VANCOMYCIN 1,500 MG in SODIUM CHLORIDE 0.9% 500 ML 333 ML IV (20:37)
[2018-04-10 20:39] VITALS: BP 136/69; PULSE 86; RESP 12; TEMP 36.3; O2SAT 97
--- NOTE | 2018-04-10 22:48 | PC.NURSE ---
Pt ambulatory to room 201 for vancomycin infusion. Dual lumen PICC to LUE white port draws blood easily and flushes without difficulty. Noted dressing has small amount contained bloody drainage. Pt declines offer to change PICC dressing. Dressing was reinforced distally with medipore tape and catheter is intact to LUE. Infusion completed and pt ambulatory to home. Left hospital in stable condition.
[2018-04-11 08:24] VITALS: BP 132/65; PULSE 77; RESP 16; TEMP 36.7; O2SAT 99
--- NOTE | 2018-04-11 08:56 | PC.NURSE ---
Addendum entered by Marti Recinos R.N. 04/11/18 11:45: Infusion completed, iv flushed with saline and heparin and Pt departed. Original Note: Addendum entered by Marti Recinos R.N. 04/11/18 09:57: Pt now has Vanco infusing as ordered. Pt denies needs at this time. Pt given juice to drink and agrees to call for assistance as needed. Original Note: Addendum entered by Marti Recinos R.N. 04/11/18 09:37: Lab reports Vanco Trough result as 15.2. It has not shown up on the Pt's result screen. Verified with Lab [facility] that 15.2 was the result for Jeremy Salazar. Spoke with Tawanna in Pharmacy and she stated she was comfortable with the result as that was the expected result. Original Note: Pt here for Vancomycin infusion as scheduled. MAGO PICC line flushes well and had good blood return for vanco trough. Line flushed post draw and cap replaced. Awaiting trough results. Pt states he is feeling well and has no pain. Pt is afebrile and states he is feeling well today.
[2018-04-11] MEDS: VANCOMYCIN TROUGH 1 REQUEST MISC (09:05)
[2018-04-11] MEDS: VANCOMYCIN 1,500 MG in SODIUM CHLORIDE 0.9% 500 ML 333 ML IV ×2 (09:50→20:35)
--- NOTE | 2018-04-11 20:58 | PC.NURSE ---
Addendum entered by Mey Hernández R.N. 04/11/18 22:31: VSS. 117/66, 73, 98%, 16RR. Completion of Abx transfusion, patient to return in the morning. Original Note: Gretchen shift note: Infusion center patient arrived to for administration of Vancomycin IV via double port PICC line to MAGO. Patient received 1GM IV BID and will return in the AM. Patient awake, alert, and very pleasant. Ambulated to room with steady gait, independently. IVF infusing as ordered.
[2018-04-12] MEDS: VANCOMYCIN 1,500 MG in SODIUM CHLORIDE 0.9% 500 ML 333 ML IV ×2 (08:43→20:27)
[2018-04-12 20:24] VITALS: BP 128/72; PULSE 64; RESP 18; TEMP 36.6; O2SAT 96
--- NOTE | 2018-04-12 22:14 | PC.NURSE ---
Infusion Note Pt arrived to floor from home for vancomycin infusion. A&O, VSS, no complaints of pain. Vancomycin infused in room, 202. At the end of infusion PICC line saline flushed and heparin locked w/ 5ml of 10u/ml. Pt left home 2215 w/o questions or concerns.
[2018-04-13] MEDS: VANCOMYCIN 1,500 MG in SODIUM CHLORIDE 0.9% 500 ML 333 ML IV ×2 (08:38→20:20)
[2018-04-13 08:45] VITALS: BP 145/83; PULSE 65; RESP 16; TEMP 36.6; O2SAT 99
[2018-04-13 20:28] VITALS: BP 139/75; PULSE 65; RESP 18; TEMP 36.5
--- NOTE | 2018-04-13 20:29 | PC.NURSE ---
Addendum entered by Rehana Wilburn R.N. 04/13/18 22:13: infusion complete, pt tolerated well Original Note: pt ambulated up to , vanco infusion started in room 201. picc flushed well. pt denies any discomfort
[2018-04-14] MEDS: VANCOMYCIN 1,500 MG in SODIUM CHLORIDE 0.9% 500 ML 333 ML IV ×2 (08:40→20:16)
[2018-04-14 08:44] VITALS: BP 116/73; PULSE 65; RESP 16; TEMP 36.7
--- NOTE | 2018-04-14 14:31 | PC.NURSE ---
Yvette from [facility] called regarding requesting a faxed copy of pts recent trough results. This was faxed per her request and she was also advised that another one would be drawn on 04/14 per pharmacy
[2018-04-14 20:26] VITALS: BP 131/70; PULSE 69; RESP 18; TEMP 36.7; O2SAT 96
--- NOTE | 2018-04-14 20:27 | PC.NURSE ---
Addendum entered by Rehana Wilburn R.N. 04/14/18 22:36: vanco infusion complete. pt tolerated well. Original Note: Patient ambulated to ac room 201 for vanco infusion. picc line patent. pt sitting in chair
[2018-04-15 09:05] VITALS: BP 125/75; PULSE 60; RESP 16; TEMP 36.7; O2SAT 97
[2018-04-15 09:21] LABS: Vancomycin Trough 18.5 ug/mL (10-20)
[2018-04-15] MEDS: VANCOMYCIN 1,500 MG in SODIUM CHLORIDE 0.9% 500 ML 333 ML IV (09:46)
[2018-04-15] MEDS: VANCOMYCIN 1,250 MG in SODIUM CHLORIDE 0.9% 250 ML IV (20:35)
[2018-04-16] MEDS: VANCOMYCIN 1,250 MG in SODIUM CHLORIDE 0.9% 250 ML IV ×2 (08:45→20:45)
[2018-04-16 09:03] VITALS: BP 139/60; PULSE 60; RESP 18; TEMP 37; O2SAT 99
[2018-04-16 20:28] VITALS: BP 123/74; PULSE 77; RESP 17; TEMP 37.1; O2SAT 97
--- NOTE | 2018-04-16 20:28 | PC.NURSE ---
Addendum entered by Hui Diane R.N. 04/16/18 22:08: Patient left facility A&OX4, denies any pain, and is ambulatory. IVF have finished infusing as ordered, VSS. Patient left facility at 2200. Original Note: Patient up to room at 2020 this shift. Patient oriented to call light and its use; oriented to BR and needed to call for assistance when IVF are in use for safety. VSS. Call light in reach. This RN offered warm blankets and food items, patient agreed to warm blankets. Patient is A&OX4 and ambulatory. Will continue to monitor.
[2018-04-16 22:07] VITALS: BP 123/68; PULSE 71; RESP 20; TEMP 36.6
[2018-04-17] MEDS: VANCOMYCIN 1,250 MG in SODIUM CHLORIDE 0.9% 250 ML IV ×2 (08:25→20:18)
[2018-04-17 20:24] VITALS: BP 123/73; PULSE 78; RESP 16; TEMP 36.7; O2SAT 97
--- NOTE | 2018-04-17 20:25 | PC.NURSE ---
Addendum entered by Rehana Wilburn R.N. 04/17/18 22:15: infusion complete 4790. pt tolerated well. Original Note: Patient ambulated to ac room 202 for vanco infusion. Pt without any complaints. picc line patent and flushed easily
[2018-04-18] MEDS: VANCOMYCIN 1,250 MG in SODIUM CHLORIDE 0.9% 250 ML IV ×2 (08:20→20:19)
[2018-04-18 08:28] VITALS: BP 137/71; PULSE 68; RESP 17; TEMP 37.2; O2SAT 99
[2018-04-18 20:26] VITALS: BP 122/72; PULSE 81; RESP 18; TEMP 36.8; O2SAT 97
--- NOTE | 2018-04-18 20:26 | PC.NURSE ---
Addendum entered by Rehana Wilburn R.N. 04/18/18 21:44: vanco infused. pt tolerated well. Original Note: Patient ambulated to ac room 201 for vanco infusion. no complaints. picc flushed well
[2018-04-19] MEDS: VANCOMYCIN 1,250 MG in SODIUM CHLORIDE 0.9% 250 ML IV ×2 (08:35→20:33)
[2018-04-19 08:40] VITALS: BP 133/65; PULSE 65; RESP 16; TEMP 36.5; O2SAT 98
--- NOTE | 2018-04-19 08:58 | PC.NURSE ---
Pt arrived via private car for 08:30 infusion. PICC flushes well. Dressing CDI.
[2018-04-19 20:32] VITALS: BP 124/70; PULSE 75; RESP 16; TEMP 36.4
[2018-04-20 08:33] VITALS: BP 120/72; PULSE 63; RESP 18; TEMP 36.4; O2SAT 99
[2018-04-20] MEDS: VANCOMYCIN 1,250 MG in SODIUM CHLORIDE 0.9% 250 ML IV ×2 (08:40→20:28)
[2018-04-20 08:57] LABS: Vancomycin Trough 15.7 ug/mL (10-20)
[2018-04-20 20:37] VITALS: BP 121/85; PULSE 85; RESP 18; TEMP 36.6
--- NOTE | 2018-04-20 21:23 | PC.NURSE ---
Addendum entered by Lissett Mccall R.N. 04/20/18 21:50: Vanco completed @ 0. PICC flushed as per protocol. Tolerated w/o incidence. Discharged in stable condition. Original Note: Pt arrived @ 2029 for IV infusion of Vanco. MAGO PICC patent, IV Vanco started as per protocol. VS [id number]
[2018-04-21] MEDS: VANCOMYCIN 1,250 MG in SODIUM CHLORIDE 0.9% 250 ML IV ×2 (08:42→20:15)
[2018-04-21 08:43] VITALS: BP 123/76; PULSE 69; RESP 16; TEMP 36.6; O2SAT 98
[2018-04-21 20:23] VITALS: BP 117/68; PULSE 76; RESP 18; TEMP 36.6; O2SAT 96
--- NOTE | 2018-04-21 20:24 | PC.NURSE ---
Pt arrived for vancomycin infusion. VSS. MAGO PICC intact/patent. Vanco infusing via pump as per orders. Pt denies an complaintsas
[2018-04-22] MEDS: VANCOMYCIN 1,250 MG in SODIUM CHLORIDE 0.9% 250 ML IV ×2 (08:37→20:37)
[2018-04-22 08:44] VITALS: BP 128/76; PULSE 65; RESP 18; TEMP 36.5
[2018-04-22 20:37] VITALS: BP 129/79; PULSE 71; RESP 18; TEMP 36.6; O2SAT 97
--- NOTE | 2018-04-22 20:39 | PC.NURSE ---
pt ambulated to ac room 201. picc flushed well. pt denies any discomfort.
[2018-04-23] MEDS: VANCOMYCIN 1,250 MG in SODIUM CHLORIDE 0.9% 250 ML IV ×2 (08:52→20:21)
[2018-04-23 10:01] VITALS: BP 120/77; PULSE 63; RESP 16; TEMP 36.6
[2018-04-23 20:29] VITALS: BP 128/79; PULSE 73; RESP 18; TEMP 36.4; O2SAT 98
[2018-04-24] MEDS: VANCOMYCIN 1,250 MG in SODIUM CHLORIDE 0.9% 250 ML IV ×2 (08:33→20:20)
[2018-04-24 08:42] VITALS: BP 132/79; PULSE 67; RESP 16; TEMP 36.5
[2018-04-24 20:24] VITALS: BP 129/69; PULSE 81; RESP 16; TEMP 36.5; O2SAT 97
[2018-04-25] MEDS: VANCOMYCIN 1,250 MG in SODIUM CHLORIDE 0.9% 250 ML IV (08:28)
[2018-04-25 08:40] VITALS: PULSE 62; RESP 16; TEMP 36.1; O2SAT 98
--- NOTE | 2018-04-25 20:52 | PC.NURSE ---
patient arrived on Acute Care for his evening dose of Vancomycin. VS : BP 127/76, p-69, r-16, T-97.8. Medication infused over 1 hr.
[2018-04-26 08:30] VITALS: BP 132/74; PULSE 68; RESP 16; TEMP 36; O2SAT 98
[2018-04-26] MEDS: VANCOMYCIN 1,250 MG in SODIUM CHLORIDE 0.9% 250 ML 205 ML IV ×2 (08:34→08:36)
[2018-04-26] MEDS: VANCOMYCIN 1,250 MG in SODIUM CHLORIDE 0.9% 250 ML IV (20:21)
--- NOTE | 2018-04-26 21:41 | PC.NURSE ---
INFUSION pt walked self on unit, rm 201, for vancomycin infusion. PICC flushed without any issues. IV antibiotic infused without complications. pt left unit at approximately 2152.
[2018-04-27] MEDS: VANCOMYCIN 1,250 MG in SODIUM CHLORIDE 0.9% 250 ML IV ×2 (08:55→20:21)
[2018-04-27 09:00] VITALS: BP 115/71; PULSE 63; RESP 16; TEMP 36.7; O2SAT 98
[2018-04-27 09:07] LABS: Estimated Glomerular Filt Rate > 60.0 mL/min (>60)
[2018-04-27 09:22] LABS: Vancomycin Trough 14.7 ug/mL (10-20)
[2018-04-27 20:29] VITALS: BP 124/69; PULSE 74; RESP 16; TEMP 36.4; O2SAT 99
--- NOTE | 2018-04-27 20:29 | PC.NURSE ---
Addendum entered by Rehana Wilburn R.N. 04/27/18 21:43: infusion complete, pt tolerated well Original Note: Patient ambulated up to ac to room 201 for vanco infusion. Picc flushed well. Pt without any complaints
[2018-04-28] MEDS: VANCOMYCIN 1,250 MG in SODIUM CHLORIDE 0.9% 250 ML IV ×2 (08:38→20:27)
[2018-04-28 08:47] VITALS: BP 134/75; PULSE 61; RESP 16; TEMP 36.4
[2018-04-28 20:28] VITALS: BP 125/69; PULSE 69; RESP 16; TEMP 36.5; O2SAT 99
[2018-04-29] MEDS: VANCOMYCIN 1,250 MG in SODIUM CHLORIDE 0.9% 250 ML IV ×2 (08:43→20:33)
[2018-04-29 09:00] VITALS: BP 143/88; PULSE 73; RESP 18; TEMP 37.1
[2018-04-30 08:57] VITALS: BP 155/65; PULSE 63; RESP 19; TEMP 36.6; O2SAT 99
[2018-04-30] MEDS: VANCOMYCIN 1,250 MG in SODIUM CHLORIDE 0.9% 250 ML IV ×2 (08:57→20:26)
[2018-04-30 20:24] VITALS: BP 137/70; PULSE 70; RESP 17; TEMP 36.6
[2018-04-30 21:58] VITALS: BP 122/71; PULSE 66; RESP 18; TEMP 36.7
[2018-05-01 08:35] VITALS: BP 119/72; PULSE 63; RESP 16; TEMP 36.6; O2SAT 98
[2018-05-01] MEDS: VANCOMYCIN 1,250 MG in SODIUM CHLORIDE 0.9% 250 ML IV ×2 (08:43→20:20)
[2018-05-01 20:40] VITALS: BP 125/66; PULSE 78; RESP 16; TEMP 36.6; O2SAT 98
[2018-05-02] MEDS: VANCOMYCIN 1,250 MG in SODIUM CHLORIDE 0.9% 250 ML IV ×2 (08:26→20:23)
--- NOTE | 2018-05-02 08:45 | PC.NURSE ---
Pt arrived from home for vanco infusion. Pt a&o. offers no overt c/o.
[2018-05-02 08:47] VITALS: BP 128/73; PULSE 68; RESP 16; TEMP 36.7
[2018-05-02 20:27] VITALS: BP 126/68; PULSE 78; RESP 16; TEMP 36.9; O2SAT 98
[2018-05-03] MEDS: VANCOMYCIN 1,250 MG in SODIUM CHLORIDE 0.9% 250 ML IV ×2 (08:40→20:23)
[2018-05-03 08:47] VITALS: BP 128/77; PULSE 66; RESP 16; TEMP 36.3
[2018-05-03 20:24] VITALS: BP 134/78; PULSE 71; RESP 16; TEMP 36.4; O2SAT 98
--- NOTE | 2018-05-03 20:24 | PC.NURSE ---
pt ambulated to ac room 201 for vanco infusion. picc flushed well, infusion started
[2018-05-04 08:50] VITALS: BP 122/78; PULSE 60; RESP 18; TEMP 36.6; O2SAT 99
[2018-05-04] MEDS: VANCOMYCIN 1,250 MG in SODIUM CHLORIDE 0.9% 250 ML IV ×2 (08:52→20:41)
[2018-05-04 09:02] LABS: Estimated Glomerular Filt Rate > 60.0 mL/min (>60)
[2018-05-05] MEDS: VANCOMYCIN 1,250 MG in SODIUM CHLORIDE 0.9% 250 ML IV ×2 (08:32→20:30)
[2018-05-05 08:36] VITALS: BP 134/78; PULSE 65; RESP 18; TEMP 36.6; O2SAT 99
[2018-05-06] MEDS: VANCOMYCIN 1,250 MG in SODIUM CHLORIDE 0.9% 250 ML IV ×2 (08:50→20:19)
[2018-05-06 08:54] VITALS: BP 130/71; PULSE 63; RESP 16; TEMP 36.5; O2SAT 99
[2018-05-06 20:25] VITALS: BP 140/82; PULSE 81; RESP 20; TEMP 36.5
[2018-05-07 09:08] VITALS: BP 124/77; PULSE 59; RESP 16; TEMP 36.6; O2SAT 98
[2018-05-07] MEDS: VANCOMYCIN 1,250 MG in SODIUM CHLORIDE 0.9% 250 ML IV ×2 (09:15→20:24)
[2018-05-07 20:26] VITALS: BP 120/71; PULSE 67; RESP 16; TEMP 36.6; O2SAT 98
[2018-05-08] MEDS: VANCOMYCIN 1,250 MG in SODIUM CHLORIDE 0.9% 250 ML IV ×2 (08:28→20:13)
[2018-05-08 09:33] VITALS: BP 135/79; PULSE 62; RESP 16; TEMP 36.6; O2SAT 100
[2018-05-08 20:25] VITALS: BP 128/71; PULSE 73; RESP 16; TEMP 36.7
--- NOTE | 2018-05-08 21:45 | PC.NURSE ---
Patient left facility A&Ox3, VSS, able to ambulate independently. IV antibiotics infused as ordered and RN flushed PICC line per protocol.
[2018-05-09 08:30] VITALS: BP 112/72; PULSE 71; RESP 16; TEMP 36.4
[2018-05-09] MEDS: VANCOMYCIN 1,250 MG in SODIUM CHLORIDE 0.9% 250 ML IV ×2 (08:41→20:29)
--- NOTE | 2018-05-09 08:49 | PC.NURSE ---
Addendum entered by Tanja Correa R.N. 05/09/18 10:03: Vanco infusion complete. PICC flushed per protocol, with brisk blood return. No issues. Pt left unit up ad yovani in no distress. Pt to drive himself home. Original Note: [facility] Day Shift-Pt arrived to unit into room 201 at approx 0825. Assessment at 0835, Pt A&OX4, denies pain, nausea, chest pain, any respiratory issue. States nothing new to report. AE clear throughout lung leonard, HR 68bpm and regular with 1 extra beat within 15 seconds faintly heard upon auscultation. VSS, afebrile. PICC to TORREY dressing CDI, flushes well with brisk blood return. Vancomycin infusion started at 0841. Call light within reach. Left pt in room, he stated he wanted to read his book.
[2018-05-09 09:58] VITALS: BP 132/79; PULSE 56; RESP 17; TEMP 36.5
[2018-05-10 08:26] VITALS: BP 119/61; PULSE 66; RESP 17; TEMP 36.3
[2018-05-10] MEDS: VANCOMYCIN 1,250 MG in SODIUM CHLORIDE 0.9% 250 ML IV ×2 (08:34→20:23)
[2018-05-10 10:05] VITALS: BP 123/68; PULSE 59; RESP 17; TEMP 36.6
--- NOTE | 2018-05-10 11:27 | PC.NURSE ---
Pt arrived to unit into room 201 around 0825. Pt reported he was concerned with 2 spots on his left knee to right side of his healed incision. 2 spots are pink colored compared to flesh tone, no redness, slight bump, soft and non-tender. no redness. VSS, afebrile. Pt stated has Ortho OP follow up appointment tomorrow (Friday) at 1300. Equipment Service Lead explained does not look urgent, and to report to Dr during follow up appointment tomorrow. HR regular, AE clear throughout lung leonard. TORREY PICC dressing CDI, dated for 05/07. Flushes well with brisk blood return. IV Vanco infused from [id number]. Pt tolerated well. Post vitals stable, see flowsheet. Flushed PICC post infusion with brisk blood return. Pt left unit up ad yovani in no distress. Left unit at 1010. Pt reported he will drive himself home.
[2018-05-10 20:27] VITALS: BP 131/73; PULSE 57; RESP 18
--- NOTE | 2018-05-10 20:29 | PC.NURSE ---
Addendum entered by Lissett Mccall R.N. 05/10/18 21:46: IV Vanco completed. PICC flushed as per protocol Pt discharged in stable condition. Original Note: Pt arrived for IV infusion. Denies any discomfort. VSS TORREY PICC intact/patent. Vancomycin stated as per orders. Call light w/in reach.
[2018-05-11] MEDS: VANCOMYCIN 1,250 MG in SODIUM CHLORIDE 0.9% 250 ML IV ×2 (08:33→20:28)
[2018-05-11 08:39] VITALS: BP 136/84; PULSE 63; RESP 20; TEMP 36.7
[2018-05-11 20:29] VITALS: BP 129/73; PULSE 75; RESP 20; TEMP 36.5; O2SAT 98
--- NOTE | 2018-05-11 20:32 | PC.NURSE ---
Patient ambulated up stairs to ac room 201 for infusion. picc flushed well. twyla infusing
[2018-05-12] MEDS: VANCOMYCIN 1,250 MG in SODIUM CHLORIDE 0.9% 250 ML IV ×2 (08:49→20:18)
[2018-05-12 08:50] VITALS: BP 128/75; PULSE 59; RESP 16; TEMP 36.5; O2SAT 99
[2018-05-12 20:26] VITALS: BP 135/83; PULSE 74; RESP 16; TEMP 36.3; O2SAT 97
--- NOTE | 2018-05-12 20:27 | PC.NURSE ---
patient up to ac to room 213 for vanco infusion, picc flushed well. pt without any complaints
[2018-05-13] MEDS: VANCOMYCIN 1,250 MG in SODIUM CHLORIDE 0.9% 250 ML IV ×2 (08:40→20:33)
[2018-05-13 08:49] VITALS: BP 128/78; PULSE 63; RESP 14; TEMP 36.4; O2SAT 96
[2018-05-14] MEDS: VANCOMYCIN 1,250 MG in SODIUM CHLORIDE 0.9% 250 ML IV ×2 (09:01→20:45)
[2018-05-14 09:03] VITALS: BP 117/74; PULSE 63; RESP 16; TEMP 36.4; O2SAT 99
[2018-05-14 09:19] LABS: Estimated Glomerular Filt Rate > 60.0 mL/min (>60)
[2018-05-14 09:30] LABS: Vancomycin Trough 15.5 ug/mL (10-20)
[2018-05-14 20:30] VITALS: BP 120/70; PULSE 73; RESP 16; TEMP 36.4; O2SAT 98
[2018-05-15 08:40] VITALS: BP 122/73; PULSE 66; RESP 16; TEMP 36.4; O2SAT 99
[2018-05-15] MEDS: VANCOMYCIN 1,250 MG in SODIUM CHLORIDE 0.9% 250 ML IV ×2 (08:40→20:19)
[2018-05-15 20:20] VITALS: BP 137/73; PULSE 81; RESP 18; TEMP 36.4; O2SAT 97
--- NOTE | 2018-05-15 20:23 | PC.NURSE ---
Pt ambulated to ac room 201. Picc flushed well. Vanco infusing.
[2018-05-16] MEDS: VANCOMYCIN 1,250 MG in SODIUM CHLORIDE 0.9% 250 ML IV ×2 (08:21→20:21)
[2018-05-16 08:27] VITALS: BP 119/70; PULSE 64; RESP 16; TEMP 36.6
[2018-05-16 20:22] VITALS: BP 126/76; PULSE 71; RESP 17; TEMP 36.4; O2SAT 98
[2018-05-16 21:31] VITALS: BP 136/61; PULSE 74; RESP 17; TEMP 36.7
[2018-05-17] MEDS: VANCOMYCIN 1,250 MG in SODIUM CHLORIDE 0.9% 250 ML IV ×2 (08:41→20:24)
[2018-05-17 08:42] VITALS: BP 127/56; PULSE 64; RESP 16; TEMP 36.1; O2SAT 98
--- NOTE | 2018-05-17 08:43 | PC.NURSE ---
Pt arrived via home A&o, asking appropriate questions. will see angelo in the morning about follow up.
[2018-05-17 20:29] VITALS: BP 133/72; PULSE 69; RESP 18; TEMP 36.4; O2SAT 97
[2018-05-18] MEDS: VANCOMYCIN 1,250 MG in SODIUM CHLORIDE 0.9% 250 ML IV (08:46)
[2018-05-18 08:54] VITALS: BP 126/74; PULSE 63; RESP 16; TEMP 36.5; O2SAT 100
[2018-05-18 21:27] VITALS: BP 125/69; RESP 20; TEMP 36.7
--- NOTE | 2018-05-18 21:39 | PC.NURSE ---
pt here for last dose vanco iv-vss-picc line dc'd with tip intact pt kati well
== END 2018-05-28 13:17 ==
PROVIDERS: Family Provider Family Medicine; PCP Family Medicine; Visit Provider Physician Assistant Surgical
DX: T80.219A Unspecified infection due to central venous catheter, initial encounter (principal); M17.12 Unilateral primary osteoarthritis, left knee
CPT/HCPCS: 36569; 36591; 77001; 80202; 82565; 87070; 87205; 96365; 96366; J3370

== ENCOUNTER 2020-05-31 08:20 | Emergency (ER) | payer OTHER, SELFPAY ==
[2018-04-03 19:25] VITALS: BMI 25.9
[2020-05-31 08:25] VITALS: BP 157/86; PULSE 69; RESP 15; TEMP 36.8; O2SAT 100; BMI 26.9
--- NOTE | 2020-05-31 08:32 | ED.EXTPRO ---
HPI - Extremity Problem General Chief complaint: Fall Stated complaint: Right thumb smashed yest. Time Seen by Provider: 05/31/20 08:32 Source: patient Mode of arrival: Ambulatory Limitations: no limitations History of Present Illness HPI Narrative: This is a 74-year-old male who comes to the emergency department with with complaint of right thumb pain and some mild pain in his 4th finger. Yesterday morning approximately 24 hours ago patient was walking his dog when it launch and began running towards a deer. Pulled the patient forward and he fell down on his right hand. And right side. He denies any head injury, denies any neck or back injury. He has general aches and pains all over but states they are mild. Patient is unsure he thinks he may have landed directly on the thumb itself. He states lesion was also on the right hand. Patient states he has quite a bit of swelling over the thumb particularly over the distal joint. Patient states it is difficult to flex and extend secondary to swelling. Patient does take an aspirin daily. He denies any other prescription medications. He has not taken any medication for pain and defers anything for pain. He states he has chronic sinusitis but denies any other major medical issues. He does have allergies to NSAIDs. Related Data Home Medications Medication Instructions Recorded Confirmed aspirin [Aspirin Low Dose] 81 mg PO DAILY 04/03/18 04/20/18 loratadine 10 mg PO BEDTIME 04/03/18 04/20/18 Allergies Allergy/AdvReac Type Severity Reaction Status Date / Time acetaminophen [From TYLENOL] Allergy Mild increased Verified 04/03/18 16:43 mucus production and sneezing NSAIDS (Non-Steroidal Allergy Mild sneezing Verified 04/03/18 16:43 Anti-Inflamma and mucus [NSAIDS (NON-STEROIDAL production ANTI-INFLAMMA] aspirin [ASPIRIN] AdvReac Unknown Verified 04/03/18 16:43 Review of Systems Review of Systems ROS Unobtainable: All systems reviewed & are unremarkable except as noted in HPI and below Patient History Medical History Sinusitis, chronic (Acute) Social History household members: spouse Smoking Status: Never smoker alcohol intake: current Smoking Status: Never smoker alcohol intake frequency: holidays/special occasions only Substance Use Type: does not use Exam Narrative Exam Narrative: GENERAL: Alert and oriented x three, well-nourished, well-appearing male in mild distress. HEENT: Head normocephalic, atraumatic, EOMI, pupils reactive, face symmetric, moist mucous membranes NECK: Supple, full range of motion CARDIOVASCULAR: Regular rate and rhythm without murmurs, rubs or gallops. RESPIRATORY: Breath sounds equal bilaterally, no wheezes rales or rhonchi. ABDOMEN: Soft, nontender. Normoactive bowel sounds all 4 quadrants. No guarding or rebound, rigidity, no mass : No CVA tenderness EXTREMITIES: Normal range of motion, except for right thumb. Patient has significant swelling over the distal joint as well as bruising between the distal joint and the proximal nail. There is no subungual hematoma appreciated on the nail, the nail does appear intact and does not move easily with palpation. Patient is able to flex at the proximal joint without issue. He has [id number] tenderness of the thumb. Patient also has some very mild tenderness of the 4th digit but has full range of motion, no significant swelling, ecchymosis or other changes and no other bony tenderness throughout the hand. Patient has equal sensation throughout. Neurovascularly intact NEUROLOGICAL: Cranial nerves II through XII grossly intact. Moving all extremities SKIN: Warm, dry, no petechiae, no rashes or lesions, no open wounds noted. Initial Vital Signs Initial Vital Signs: Vital Signs Temperature 98.2 F 05/31/20 08:25 Pulse Rate 69 05/31/20 08:25 Respiratory Rate 15 05/31/20 08:25 Blood Pressure 157/86 H 05/31/20 08:25 Pulse Oximetry 100 05/31/20 08:25 Scores GCS [place] coma scale eye opening: Spontaneous [place] coma scale verbal response: Orientated [place] coma scale motor response: Obey commands [place] coma scale total score: 15 Course Orders Ordered: ED Orders 05/31/20 08:38 XR hand RT min 3V Stat Reevaluation(s) Reevaluation #1: Reviewed patients images and recommend follow up with orthopedic surgery, patient injury is on his dominant hand. Referral given, splint placed by nursing. Time: 09:17 Vital Signs Vital signs: Vital Signs - 8 hr 05/31/20 08:25 Temperature 98.2 F Pulse Rate 69 Respiratory Rate 15 Blood Pressure 157/86 H Pulse Oximetry 100 MDM - Extremity (Nontraumatic) Imaging Data right hand xray: Radiologist's Impression: [address] [address] XRay Report Signed Patient: Jeremy Bowie LMR#: [id number] : 4Acct:[id number] Age/Sex: 74 / MDate of Service: 05/31/20 Loc: ED Accession Number: [id number] Procedure: XR hand RT min 3V Ordering Provider: Chastity Angela D.O. PROCEDURE: XR HAND RT MIN 3V INDICATIONS: right thumb, swelling, bruising. 4th digit mild pain TECHNIQUE: 3 views of the hand(s) acquired. COMPARISON: None. FINDINGS: Bones: No fractures or dislocations. Carpal bones are normally aligned. No suspicious bony lesions. Advanced degenerative changes are seen, with numerous areas of joint space narrowing with associated osteophytes with fragments a talavera. Soft tissues: Generalized soft tissue swelling is seen, particularly involving the thumb. IMPRESSION: Soft tissue swelling and degenerative changes, without a tony, acute bony abnormality. If there is point tenderness (or other clinical suspicion for a fracture not seen on these images) please consider a dedicated CT for further evaluation. Dictated by: Andrei Crocker M.D. on 05/31/2020 at 8:10 Approved by: Andrei Crocker M.D. on 05/31/2020 at 8:11 Discharge Plan Departure Patient Disposition: Home Clinical Impression: Injury of right thumb Discharge Date/Time: 05/31/20 09:47 Instructions: DI for a Hand Fracture Activity Restrictions/Additional Instructions: Follow-up with Orthopedic surgery in the next 5-7 days for recheck. Call the referral number included, let the office know you referred from the emergency department. Your images do not conclusively rule out a fracture and I recommend treating as a fracture and follow up with orthopedic surgery for recheck. Splint Care: Keep splint clean and dry. Elevated affected body part to decrease swelling. OK to use ice pack on the affected body part. Use for 15-20 minutes each time, for 5-6x per day. If you develop worsening pain, numbness, tingling, discoloration of the affected body part, loosen the splint by loosening the SEUN wrap, and either see your doctor for an urgent re-assessment, or return to the Emergency Department. Return to the Emergency Department for any new or worsening symptoms. Prescriptions: No Action aspirin [Aspirin Low Dose] 81 mg Tablet,Delayed Release (Dr/Ec) 81 mg PO DAILY RF: 0 loratadine 10 mg Tablet 10 mg PO BEDTIME RF: 0 Referrals: Jb Piper MD [Physician] -
--- NOTE | 2020-05-31 08:38 | DI.RAD.S_ITS ---
PROCEDURE: XR HAND RT MIN 3V INDICATIONS: right thumb, swelling, bruising. 4th digit mild pain TECHNIQUE: 3 views of the hand(s) acquired. COMPARISON: None. FINDINGS: Bones: No fractures or dislocations. Carpal bones are normally aligned. No suspicious bony lesions. Advanced degenerative changes are seen, with numerous areas of joint space narrowing with associated osteophytes with fragments a talavera. Soft tissues: Generalized soft tissue swelling is seen, particularly involving the thumb. IMPRESSION: Soft tissue swelling and degenerative changes, without a tony, acute bony abnormality. If there is point tenderness (or other clinical suspicion for a fracture not seen on these images) please consider a dedicated CT for further evaluation. Dictated by: Andrei Crocker M.D. on 05/31/2020 at 8:10 Approved by: Andrei Crocker M.D. on 05/31/2020 at 8:11
[2020-05-31 09:45] VITALS: BP 145/82; PULSE 57; RESP 16; O2SAT 99
== END 2020-05-31 09:47 | disposition home or self-care (01) ==
PROVIDERS: Emergency Provider Emergency Medicine; Family Provider Family Medicine
DX: S69.91XA Unspecified injury of right wrist, hand and finger(s), initial encounter (principal); W19.XXXA Unspecified fall, initial encounter
CPT/HCPCS: 29130; 73130; 99281; 99283

== ENCOUNTER → 2020-11-06 07:10 | Outpatient (CLI) | payer OTHER, SELFPAY ==
[2018-04-03 19:25] VITALS: BMI 25.9
[2020-11-06 08:16] LABS: Alanine Aminotransferase 22 IU/L (<50); Albumin Globulin Ratio 1.4 (1.0-2.8); Alkaline Phosphatase 80 U/L (38-126); Aspartate Aminotransferase 32 IU/L (17-59); BUN Creatinine Ratio 15.3 (6-22); Bilirubin Total 1.4 mg/dL (0.2-1.3); Blood Urea Nitrogen 18 mg/dL (9-20); Calcium 9.5 mg/dL (8.4-10.2); Carbon Dioxide 27 mmol/L (22-32); Chloride 105 mmol/L (98-107); Cholesterol 194 mg/dL (140-199); Estimated Glomerular Filt Rate 59.9 mL/min (>60); Globulin 2.8 g/dL (1.7-4.1); Glucose 115 mg/dL (80-110); HDL Cholesterol 49 mg/dL (40-60); HEMOLYSIS < 15 (0-50); LDL Cholesterol Calculated 130 mg/dL (<100); Potassium 4.7 mmol/L (3.4-5.1); Sodium 138 mmol/L (137-145); Total Protein 6.8 g/dL (6.3-8.2); Triglycerides 73 mg/dL (35-150)
[2020-11-07 05:38] LABS: PSA Free % 26.3 % (.); PSA, Total 1.6 ng/mL (0.0-4.0)
== END ==
PROVIDERS: Family Provider Family Medicine; PCP Internal Medicine; Referring Provider Internal Medicine; Visit Provider Internal Medicine
DX: E78.5 Hyperlipidemia, unspecified (principal); Z12.5 Encounter for screening for malignant neoplasm of prostate
CPT/HCPCS: 36415; 80053; 80061; 84153; 84154

== ENCOUNTER → 2022-03-07 14:27 | Outpatient (CLI) | payer OTHER, SELFPAY ==
[2018-04-03 19:25] VITALS: BMI 25.9
[2022-03-07 15:11] LABS: Hematocrit 42.8 % (41-53); Hemoglobin 14.7 g/dL (13.5-17.5); Mean Corpuscular HGB Conc 34.3 % (30-36); Mean Corpuscular Volume 90.3 fL (80-100); Platelet Count 230 X10^3/uL (150-400); Red Blood Cell Count 4.74 X10^6/uL (4.5-5.9); Red Cell Distribution Width 13.9 % (11.6-14.8); White Blood Cell Count 6.2 X10^3/uL (4.5-11.0)
[2022-03-07 15:50] LABS: Alanine Aminotransferase 19 IU/L (<50); Albumin 3.9 g/dL (3.5-5.0); Albumin Globulin Ratio 1.5 (1.0-2.8); Alkaline Phosphatase 73 U/L (38-126); Aspartate Aminotransferase 27 IU/L (17-59); BUN Creatinine Ratio 19.5 (6-22); Bilirubin Total 1.8 mg/dL (0.2-1.3); Blood Urea Nitrogen 17 mg/dL (9-20); Calcium 9.5 mg/dL (8.4-10.2); Carbon Dioxide 30 mmol/L (22-32); Chloride 103 mmol/L (98-107); Cholesterol 181 mg/dL (140-199); Estimated Glomerular Filt Rate > 60 mL/min (>60); Globulin 2.6 g/dL (1.7-4.1); Glucose 89 mg/dL (80-110); HDL Cholesterol 52 mg/dL (40-60); HEMOLYSIS < 15 (0-50); LDL Cholesterol Calculated 106 mg/dL (<100); Potassium 4.8 mmol/L (3.4-5.1); Sodium 138 mmol/L (137-145); Total Protein 6.5 g/dL (6.3-8.2); Triglycerides 116 mg/dL (35-150)
[2022-03-07 16:20] LABS: TSH w/ Reflex to FT4 1.05 uIU/mL (0.47-4.68)
[2022-03-07 16:21] LABS: Prostate Specific Antigen 1.21 ng/mL (0.10-4.00)
== END ==
PROVIDERS: Family Provider Family Medicine; PCP Internal Medicine; Referring Provider Internal Medicine; Visit Provider Internal Medicine
DX: E78.2 Mixed hyperlipidemia (principal); M15.9 Polyosteoarthritis, unspecified; N40.0 Benign prostatic hyperplasia without lower urinary tract symptoms
CPT/HCPCS: 36415; 80053; 80061; 84153; 84443; 85027

== ENCOUNTER 2023-03-01 22:13 | Emergency (ER) | payer MEDICARE, SELFPAY ==
[2018-04-03 19:25] VITALS: BMI 25.9
[2023-03-01 22:16] VITALS: BP 132/75; PULSE 82; RESP 16; TEMP 36.7; O2SAT 97; BMI 23.6
--- NOTE | 2023-03-01 22:25 | ED_ITS ---
HPI - General Adult General Chief complaint: Urogenital-Male Stated complaint: Unable to urinate Time Seen by Provider: 03/01/23 22:20 History of Present Illness HPI narrative: 77-year-old male nonsmoker with history of hyperlipidemia presents with lower abdominal discomfort and inability to urinate for the latter half of the day. He states that he has had a decreased stream for the past few days but was unable tonight. He denies any dietary change or new medications. He has no ba ck pain, traumas or injuries. He denies any numbness in his groin or lower extremity weakness. Related Data Home Medications Medication Instructions Recorded Confirmed aspirin 81 mg tablet,delayed 81 mg PO DAILY 04/03/18 03/07/22 release (Christofer Low Dose Aspirin) loratadine 10 mg tablet 10 mg PO BEDTIME 04/03/18 03/07/22 fluticasone propionate 50 1 spray intranasal DAILY 03/07/22 03/07/22 mcg/actuation nasal spray,suspension (Aller-Ishan) Previous Rx's Medication Instructions Recorded rosuvastatin 5 mg tablet 5 mg PO DAILY #90 tabs 09/23/22 tamsulosin 0.4 mg capsule (Flomax) 0.4 mg PO DAILY #30 caps 03/01/23 Allergies Allergy/AdvReac Type Severity Reaction Status Date / Time acetaminophen [From TYLENOL] Allergy Mild increased Verified 03/07/22 12:39 mucus production and sneezing NSAIDS (Non-Steroidal Allergy Mild sneezing Verified 03/07/22 12:39 Anti-Inflamma and mucus [NSAIDS (NON-STEROIDAL production ANTI-INFLAMMA] aspirin [ASPIRIN] AdvReac Unknown Verified 03/07/22 12:39 Review of Systems Review of Systems Narrative: GENERAL: Denies chills, fatigue, malaise, fever, sweats. HEENT: Denies sinus pain, ear pain, sore throat, difficulty swallowing, dizziness. RESPIRATORY: Denies dyspnea, cough, wheezing, hemoptysis, sputum. CARDIOVASCULAR: Denies chest pain, palpitations, orthopnea, edema, GASTROINTESTINAL: Denies nausea, vomiting, abdominal pain, diarrhea, constipation, melena. : See HPI MUSCULOSKELETAL: denies weakness, joint pain, or bony pain SKIN: Denies rash, skin lesions, or other NEUROLOGIC: Denies weakness, headache, numbness, change in speech, confusion, seizures, incoordination. PSYCHIATRIC: No concerning psychosocial issues. 12 point review of systems is negative except for those stated above Patient History Medical History Chicken pox Do not resuscitate Fractures (~2019) Hearing loss (~1947) History of recurrent ear infection (~1947) Measles Medicare annual wellness visit, initial Migraines (~1969) Mixed hyperlipidemia Mumps Plantar warts (~1956) Primary osteoarthritis involving multiple joints Ruptured tympanic membrane (~1947) Sinusitis, chronic (~1989) Tinnitus (~2017) Vertigo (~2017) Wears glasses Surgical History Anesthesia History of colonoscopy History of partial knee replacement (~01/2018) History of sinus surgery History of tonsillectomy and adenoidectomy (~1949) Family History Mother Mental health problem Brother Lung cancer Grandfather Cancer Diabetes mellitus Grandmother Congestive heart failure Grandfather History of heart disease Grandmother Pneumonia Social History details: 2020, one step son, retired [employer] household members: spouse Smoking Status: Never smoker alcohol intake: current Smoking Status: Never smoker alcohol intake frequency: holidays/special occasions only Substance Use Type: does not use Exam Narrative Exam Narrative: GEN: AOx3 and in mild distress EYES: Pupils are equal, round, and reactive to light and accommodation. Extraoccular muscles are intact bilaterally. There is no subconjunctival hemorrhage or exudate. CHEST: Lungs are clear to auscultation bilaterally and free of wheezes, rales, or rhonchi. Heart rate is regular rhythm, there are no murmurs, clicks, rubs, or gallops. There is no chest wall tenderness. ABD: Abdomen is soft and minimally tender in the suprapubic region. There is no guarding or rebound. Bowel sounds are normal in all 4 quadrants. There is no mass or organomegaly. EXT: Full painless ROM of all extremities with no loss of sensation or strength. SKIN: Warm, pink, and dry. No erythema or rash Initial Vital Signs Initial Vital Signs: Vital Signs Temperature 98.1 F 03/01/23 22:16 Pulse Rate 82 03/01/23 22:16 Respiratory Rate 16 03/01/23 22:16 Blood Pressure 132/75 03/01/23 22:16 Pulse Oximetry 97 03/01/23 22:16 Oxygen Delivery Method Room Air 03/01/23 22:16 Course Orders Ordered: ED Orders 03/01/23 22:43 Urine Microscopic Stat Discontinued Medications Lidocaine HCl (Lidocaine 2% (Glydo) 6 Ml Gel) 6 ml TOP NOW ONE Stop: 03/01/23 22:27 Last Admin: 03/01/23 22:40 Dose: 6 ml Reevaluation(s) Reevaluation #1: Significant if not complete resolution symptoms after placement of Pitts catheter. Patient had a postvoid residual of over 450 mL at initial evaluation. Vital Signs Vital signs: Vital Signs - 8 hr 03/01/23 22:16 Temperature 98.1 F Pulse Rate 82 Respiratory Rate 16 Blood Pressure 132/75 Pulse Oximetry 97 Oxygen Delivery Method Room Air Medical Decision Making Lab Data Labs: Lab Results 03/01/23 Range/Units 22:43 Urine RBC 0-1/hpf (0-5/HPF) Urine WBC None seen (0-5/HPF) Ur Squamous Epith Cells None seen (0-5/HPF) Urine Bacteria None seen (None) Ur Culture Indicated? Cult not indicated Urine Dip Bedside Urine Glucose Negative Bedside Urine Bilirubin - Negative Bedside Urine Ketone - Negative Urine Specific Aylett 1.010 Bedside Urine Occult Blood +/- Bedside Urine pH 6.0 Bedside Urine Protein - Negative Bedside Urine Urobilinogen - Negative Bedside Urine Nitrite - Negative Bedside Urine Leukocytes - Negative Esterase Point of care testing: Urine Dip Bedside Urine Glucose Negative Bedside Urine Bilirubin - Negative Bedside Urine Ketone - Negative Urine Specific Aylett 1.010 Bedside Urine Occult Blood +/- Bedside Urine pH 6.0 Bedside Urine Protein - Negative Bedside Urine Urobilinogen - Negative Bedside Urine Nitrite - Negative Bedside Urine Leukocytes - Negative Esterase MDM Narrative Medical decision making narrative: CC: 77-year-old male with difficulty urinating Complicating co-morbidities: Age, hyperlipidemia Data collected from: Patient Medical records reviewed: Prior notes reviewed in our EMR Differential considered, but not limited to: Urinary retention from BPH versus medications versus other Exam documented above, pertinent findings include: Suprapubic tenderness improved after Pitts catheter placement, heart rate regular, lungs clear, no labored breathing. No saddle anesthesia or lower extremity weakness Lab Test results independently reviewed as above. Pertinent findings: No signs of urinary tract infection Imaging studies independently reviewed: bladder scan noted on nursing notes Treatments: Pitts catheter placed Re-evaluations: significant improvement Discussion: Patient with decreasing urine stream for the past few days presents with inability to urinate this afternoon. There is no sign of infection, no t rauma or injury, postvoid residual greater than 450 mL, Pitts catheter placed with resolution of symptoms. Prescription of Flomax sent to his pharmacy of choice, instructions for return given and importance of follow-up with Urology related to patient Disposition: see below, along with detailed discharge instructions that have been reviewed with patient as well as indications for ED re-evaluation and additional outpatient follow up Discharge Plan Departure Patient Disposition: Home Clinical Impression: Acute urinary retention Instructions: DI for Urinary Retention in Men Activity Restrictions/Additional Instructions: *You have been diagnosed with [urinary retention] *What to do: *Please continue to take your regular medications as directed. [ x] New medication prescriptions sent to your pharmacy: [[facility] ] [ ] New medication written as a paper prescription [ ] No new medications given *Please follow up with Dr. Oliveira at the [facility]. Please call the office Friday morning, let them know that you were seen in the emerg ency department and we would like you seen in follow-up. I will electronically transmitted a copy of today's note your behalf *Return to Emergency Department if you should have any new, worsening or concerning symptoms, such as [fever greater than 101 F, shaking chills, worsening pain, persistent vomiting or other bothersome symptoms] Prescriptions: New tamsulosin [Flomax] 0.4 mg capsule 0.4 mg PO DAILY Qty: 30 0RF No Action rosuvastatin 5 mg tablet 5 mg PO DAILY Qty: 90 3RF fluticasone propionate [Aller-Sihan] 50 mcg/actuation spray,suspension 1 spray intranasal DAILY Rx Instructions: administer into each nostril aspirin [Christofer Low Dose Aspirin] 81 mg Tablet,Delayed Release (Dr/Ec) 81 mg PO DAILY loratadine 10 mg Tablet 10 mg PO BEDTIME Referrals: Fernando Oliveira MD [Physician] - Rony Quesada MD [Primary Care Provider] - Stand Alone Forms: Patient Portal/API
[2023-03-01] MEDS: LIDOCAINE 2% (GLYDO) 6 ML GEL TOP (22:40)
[2023-03-01 23:07] LABS: Bacteria Urine None Seen; Culture Indicated Urine Cult Not Indicated; RBC Urine 0-1/HPF (0-5/HPF); Squamous Epithelial Cell Urine None Seen (0-5/HPF); WBC Urine None Seen (0-5/HPF)
== END 2023-03-01 23:21 | disposition home or self-care (01) ==
PROVIDERS: Emergency Provider Emergency Medicine; Family Provider Family Medicine; PCP Internal Medicine
DX: R33.9 Retention of urine, unspecified (principal)
CPT/HCPCS: 51702; 51798; 81003; 81015; 99283

== ENCOUNTER → 2023-03-12 15:47 | Outpatient (CLI) | payer MEDICARE, SELFPAY ==
[2023-03-04 09:34] VITALS: BMI 25.9
[2023-03-12 16:29] LABS: Aspartate Aminotransferase 36 IU/L (17-59); BUN Creatinine Ratio 22.1 (6-22); Blood Urea Nitrogen 21 mg/dL (9-20); Calcium 9.2 mg/dL (8.4-10.2); Carbon Dioxide 27 mmol/L (22-32); Chloride 103 mmol/L (98-107); Cholesterol 120 mg/dL (140-199); Estimated Glomerular Filt Rate > 60 mL/min (>60); Glucose 88 mg/dL (80-110); HDL Cholesterol 47 mg/dL (40-60); HEMOLYSIS < 15 (0-50); LDL Cholesterol Calculated 59 mg/dL (<100); Potassium 4.3 mmol/L (3.4-5.1); Sodium 137 mmol/L (137-145); Triglycerides 72 mg/dL (35-150)
== END ==
PROVIDERS: Family Provider Family Medicine; PCP Internal Medicine; Referring Provider Internal Medicine; Visit Provider Internal Medicine
DX: E78.2 Mixed hyperlipidemia (principal); N40.1 Benign prostatic hyperplasia with lower urinary tract symptoms; N13.8 Other obstructive and reflux uropathy
CPT/HCPCS: 36415; 80048; 80061; 84153; 84450

== ENCOUNTER → 2023-04-21 10:27 | Outpatient (CLI) | payer MEDICARE, SELFPAY ==
[2023-03-04 09:34] VITALS: BMI 25.9
[2023-04-23 09:46] LABS: PSA Free % 19.7 % (.); PSA, Total 3.3 ng/mL (0.0-4.0)
== END ==
PROVIDERS: Family Provider Family Medicine; PCP Internal Medicine; Referring Provider Internal Medicine; Visit Provider Internal Medicine
DX: N13.8 Other obstructive and reflux uropathy (principal); N40.1 Benign prostatic hyperplasia with lower urinary tract symptoms; R97.20 Elevated prostate specific antigen [PSA]
CPT/HCPCS: 36415; 84153; 84154

== ENCOUNTER → 2024-02-03 10:33 | Outpatient (CLI) | payer MEDICARE, SELFPAY ==
[2023-03-04 09:34] VITALS: BMI 25.9
[2024-02-03 12:30] LABS: Hemoglobin 14.6 g/dL (13.5-17.5); Mean Corpuscular Hemoglobin 32.3 PG (26-34); Mean Corpuscular Volume 95.2 fL (80-100); Platelet Count 222 X10^3/uL (150-400); Red Blood Cell Count 4.51 X10^6/uL (4.5-5.9); Red Cell Distribution Width 13.8 % (11.6-14.8)
[2024-02-03 13:10] LABS: Alanine Aminotransferase 21 IU/L (<50); Albumin 4.2 g/dL (3.5-5.0); Albumin Globulin Ratio 1.7 (1.0-2.8); Alkaline Phosphatase 67 U/L (38-126); Aspartate Aminotransferase 29 IU/L (17-59); BUN Creatinine Ratio 17.9 (6-22); Bilirubin Total 2.8 mg/dL (0.2-1.3); Blood Urea Nitrogen 17 mg/dL (9-20); Calcium 9.2 mg/dL (8.4-10.2); Carbon Dioxide 27 mmol/L (22-32); Chloride 105 mmol/L (98-107); Cholesterol 122 mg/dL (140-199); Estimated Glomerular Filt Rate > 60 mL/min (>60); Globulin 2.5 g/dL (1.7-4.1); Glucose 84 mg/dL (80-110); HDL Cholesterol 61 mg/dL (40-60); HEMOLYSIS < 15 (0-50); LDL Cholesterol Calculated 51 mg/dL (<100); Potassium 4.7 mmol/L (3.4-5.1); Sodium 139 mmol/L (137-145); Total Protein 6.7 g/dL (6.3-8.2); Triglycerides 48 mg/dL (35-150)
== END ==
PROVIDERS: Family Provider Family Medicine; PCP Internal Medicine; Referring Provider Internal Medicine; Visit Provider Internal Medicine
DX: E78.2 Mixed hyperlipidemia (principal); N40.1 Benign prostatic hyperplasia with lower urinary tract symptoms; N13.8 Other obstructive and reflux uropathy
CPT/HCPCS: 36415; 80053; 80061; 85027

== ENCOUNTER → 2024-04-15 06:47 | Outpatient (CLI) | payer MEDICARE, SELFPAY ==
[2023-03-04 09:34] VITALS: BMI 25.9
--- NOTE | 2024-04-15 07:10 | DI.ECHO.S_ITS ---
[place] +---------+ [facility] : : [address] : : [place] : : [address] : : Phone: [phone] Echocardiogram Report + + :Name: LITTLE SIERRA Study Date: 04/15/2024 Height: 69 in : :Hospital ReadingLocation: Weight: 161 lb : : Gender: Male BSA: 1.9 m2 : :: 1945 Age: 78 yrs BP: 126/84 mmHg: :Reason For Study: HEART MURMUR : :Ordering Physician: CATHI, : :PAMELA Performed By: Eliseo Mena : :Referring: PAMELA WINKLER : + + Interpretation Summary The ejection fraction is estimated to be 60-65%. Diastolic parameters suggest probable normal left ventricular diastolic function and normal filling pressures. The right ventricle is normal in size and function. There is mild aortic stenosis. Pulmonary artery pressures cannot be estimated because of the lack of a measurable TR jet velocity but the IVC suggests a CVP of around 3 mmHg. The ascending aorta is mildly enlarged, 4.2 cm. Procedure: A two-dimensional transthoracic echocardiogram with color flow and Doppler was performed. The study quality was technically good. There is no prior echocardiogram noted for this patient. The patient was in normal sinus rhythm during the exam. Left Ventricle: The left ventricle is normal in size. There is normal left ventricular wall thickness. There is no ventricular septal defect visualized. The ejection fraction is estimated to be 60-65%. There are no focal wall motion abnormalities. Diastolic parameters suggest probable normal left ventricular diastolic function and normal filling pressures. Right Ventricle: The right ventricle is normal in size and function. Atria: The left atrial size is normal. Right atrial size is normal. There is no Doppler evidence for an atrial septal defect. Mitral Valve: The mitral valve is normal. There is trace mitral regurgitation. Aortic Valve: The aortic valve is moderately calcified. There is mild aortic stenosis. The peak aortic velocity is 2.12 m/sec. The aortic valve mean gradient is 10.3 mmHg. The calculated aortic valve area is 1.5 cm2. No aortic regurgitation is present. Tricuspid Valve: The tricuspid valve is normal in structure and function. There is trace tricuspid regurgitation. Pulmonary artery pressures cannot be estimated because of the lack of a measurable TR jet velocity but the IVC suggests a CVP of around 3 mmHg. Pulmonic Valve: The pulmonic valve is normal in structure and function. There is no pulmonic valvular regurgitation. Great Vessels: The aortic root is mildly dilated. The ascending aorta is mildly enlarged. The pulmonary artery is normal size. The IVC is of normal diameter and collapses greater than 50% with a sniff. This suggests a low right atrial pressure of 3 mm Hg. Pericardium/ Pleura There is no pericardial effusion. There is no pleural effusion. MMode/2D Measurements & Calculations LVIDd: 4.2 cm LVOT diam: 2.0 cm LVIDs: 2.6 cm Ao root diam: 4.0 cm FS: 38.6 % asc Aorta Diam: 4.2 cm EPSS: 0.88 cm IVSd: 0.86 cm LVPWd: 0.73 cm LV romeo. diameter/BSA (cm/m^2): 2.3 LV sys. diameter/BSA (cm/m^2): 1.4 LA A2 area: 21.5 cm2 RA long axis: 5.1 cm LA A4 area: 18.7 cm2 RA area: 12.8 cm2 LA length (vol): 5.8 cm RA vol: 27.5 ml LA vol: 58.3 ml RA : 14.6 ml/m2 LA vol index: 30.9 ml/m2 IVC diam: 1.7 cm RVD1 (basal): 3.4 cm RVD2 (mid): 2.9 cm TAPSE: 2.2 cm Doppler Measurements & Calculations Ao V2 max: 211.9 cm/sec LVOT Max William: 92.3 cm/sec Ao V2 mean: 149.5 cm/sec LV V1 max P.4 mmHg Ao max P.0 mmHg LV V1 VTI: 23.3 cm Ao mean P.3 mmHg UMBERTO(I,D): 1.5 cm2 Ao V2 VTI: 49.1 cm UMBERTO(V,D): 1.3 cm2 sev ratio: 0.48 UMBERTO indexed to BSA (cm^2/m^2): 0.77 MV E max william: 61.1 cm/sec TR max william: 203.0 cm/sec MV A max william: 77.1 cm/sec TR max P.5 mmHg MV E/A: 0.79 PA V2 max: 79.7 cm/sec Med Peak E' William: 7.8 cm/sec PA V2 mean: 55.8 cm/sec E/E' med: 7.9 PA mean P.4 mmHg Lat Peak E' William: 7.8 cm/sec PA pr(Accel): 10.9 mmHg E/E' lat: 7.8 E/e' average: 7.8 MV dec time: 0.28 sec SV(LVOT): 71.5 ml Reading Physician:12:38 PM
== END ==
PROVIDERS: Family Provider Family Medicine; PCP Internal Medicine; Referring Provider Internal Medicine; Visit Provider Internal Medicine
DX: I35.0 Nonrheumatic aortic (valve) stenosis (principal); I77.810 Thoracic aortic ectasia; I77.89 Other specified disorders of arteries and arterioles; R01.1 Cardiac murmur, unspecified
CPT/HCPCS: 93306

== ENCOUNTER → 2024-06-16 11:06 | Outpatient (CLI) | payer MEDICARE, SELFPAY ==
[2023-03-04 09:34] VITALS: BMI 25.9
[2024-06-16 12:22] LABS: Hematocrit 47.8 % (41-53); Hemoglobin 16.1 g/dL (13.5-17.5); Mean Corpuscular HGB Conc 33.8 % (30-36); Mean Corpuscular Hemoglobin 32.2 PG (26-34); Mean Corpuscular Volume 95.3 fL (80-100); Platelet Count 239 X10^3/uL (150-400); Red Blood Cell Count 5.02 X10^6/uL (4.5-5.9); White Blood Cell Count 6.9 X10^3/uL (4.5-11.0)
[2024-06-16 12:44] LABS: Alanine Aminotransferase 23 IU/L (<50); Albumin 4.7 g/dL (3.5-5.0); Albumin Globulin Ratio 1.7 (1.0-2.8); Alkaline Phosphatase 69 U/L (38-126); Aspartate Aminotransferase 28 IU/L (17-59); BUN Creatinine Ratio 25.7 (6-22); Bilirubin Total 2.9 mg/dL (0.2-1.3); Blood Urea Nitrogen 26 mg/dL (9-20); Calcium 9.9 mg/dL (8.4-10.2); Carbon Dioxide 29 mmol/L (22-32); Chloride 104 mmol/L (98-107); Cholesterol 149 mg/dL (140-199); Estimated Glomerular Filt Rate > 60 mL/min (>60); Globulin 2.7 g/dL (1.7-4.1); Glucose 96 mg/dL (80-110); HDL Cholesterol 66 mg/dL (40-60); HEMOLYSIS < 15 (0-50); LDL Cholesterol Calculated 70 mg/dL (<100); Sodium 139 mmol/L (137-145); Total Protein 7.4 g/dL (6.3-8.2); Triglycerides 65 mg/dL (35-150)
== END ==
PROVIDERS: Family Provider Family Medicine; PCP Internal Medicine; Referring Provider Internal Medicine; Visit Provider Internal Medicine
DX: N40.1 Benign prostatic hyperplasia with lower urinary tract symptoms (principal); N13.8 Other obstructive and reflux uropathy; E78.2 Mixed hyperlipidemia; M15.9 Polyosteoarthritis, unspecified
CPT/HCPCS: 36415; 80053; 80061; 84153; 85027

== ENCOUNTER 2025-01-11 08:34 | Day surgery (SDC) | payer MEDICARE, SELFPAY ==
[2023-03-04 09:34] VITALS: BMI 25.9
--- NOTE | 2025-01-11 | PATH_ITS ---
[facility] Accession Number: [id number] No. of containers..01 Tissue . 01 Material submitted: . colon - COLON, ASCENDING POLYPS . 01 Diagnosis: COLON, ASCENDING POLYPS: Features consistent with inflammatory polyps. No dysplasia identified. . Specimen Comments: Additional step sections were examined. [facility] 01/18/2025 [facility] . 01 Electronically signed: . Poncho Quinones MD, Pathologist NPI- [id number] . 01 Gross description: . COLON, ASCENDING POLYPS: Received in formalin are 3 fragment(s) of alexandre, soft tissue measuring 0.5 x 0.3 x 0.3 cm to 1.1 x 0.6 x 0.4 cm submitted entirely in 1 cassette(s) /BRENDEN 01/18/2025 [facility] . 01 Pathologist provided ICD-10: K51.40 . 01 CPT . 421865 Specimen Comment: A courtesy copy of this report has been sent to [facility] Pathology Performed at: [address] [address], [place], [place] [id number] MD Poncho Quinones MD Phone: [phone]
[2025-01-11] MEDS: LACTATED RINGERS 1,000 ML 42 ML IV (08:49)
[2025-01-11 09:02] VITALS: BP 110/62; PULSE 82; RESP 14; TEMP 36.6; O2SAT 100
--- NOTE | 2025-01-11 09:47 | PM.PREOP ---
Pre-operative Note Interval Note History & Physical reviewed/Exam performed by Physician: Yes Changes to H&P: No ASA Class (for procedural sedation): I
--- NOTE | 2025-01-11 09:47 | PM.OP.COLON ---
Operative Date/Time/Diagnoses Date of procedure: 01/11/25 Time of procedure: 11:02 Pre-op diagnosis: Change in bowel habits Post-op diagnosis: other (Ascending colon polyps) Procedure & Clinicians Same procedure(s) as scheduled: Yes Procedure Notes SCOAP/Timeout: Performed Procedure in detail: Patient placed in left lateral recumbent position. Time out was performed. Procedural sedation was administered by anesthesia. Examination began with a thorough inspection of the perianal area. There was no evidence of fissures, fistulae, external hemorrhoids or cutaneous malignancy. The colonoscope was then placed into the rectum and the lumen was insufflated with carbon dioxide. The scope was carefully advanced forward. Ultimately the cecum was intubated and confirmed by identification of the ileocecal valve, the appendiceal orifice and the confluence of the taenia. The scope was then slowly withdrawn examining the colon thoroughly in all directions. In the rectum, retroflexion of the scope was performed for inspection of the distal rectum and anal canal. ?The colonoscopy was notable for the following: ?1. Quality of the preparation-good ?2. 5mm polyps X 3 ascending colon, completely removed with cold snare and retrieved Scope withdrawal time: 13 minutes Findings: polyp(s) (5mm, x 3 ascending colon) Specimen(s): other (polyps x 3) Complications: none Post-procedure Recommendations: Colonoscopy in 5 years Follow up: as needed Disposition: PACU
[2025-01-11 10:48] VITALS: BP 89/60; PULSE 74; RESP 16; TEMP 36.4; O2SAT 95
[2025-01-11 10:53] VITALS: BP 89/62; PULSE 70; RESP 16; O2SAT 98
[2025-01-11 10:58] VITALS: BP 96/63; PULSE 68; RESP 15; O2SAT 97
[2025-01-11 11:03] VITALS: BP 101/62; PULSE 62; RESP 15; TEMP 36.4; O2SAT 98
== END 2025-01-11 11:25 | disposition home or self-care (01) ==
PROVIDERS: Family Provider Family Medicine; PCP Internal Medicine; Referring Provider Surgery; Visit Provider Surgery
PROC: 0DJD8ZZ Inspection of Lower Intestinal Tract, Via Natural or Artificial Opening Endoscopic (ICD-10-PCS; CPT 45378; principal; 2025-01-11 09:45)
DX: K63.5 Polyp of colon (principal); R19.4 Change in bowel habit; R10.10 Upper abdominal pain, unspecified
CPT/HCPCS: 45385; J2704

== ENCOUNTER → 2025-06-21 08:25 | Outpatient (CLI) | payer MEDICARE, SELFPAY ==
[2023-03-04 09:34] VITALS: BMI 25.9
[2025-06-21 09:10] LABS: Hematocrit 44.2 % (41-53); Hemoglobin 14.9 g/dL (13.5-17.5); Mean Corpuscular HGB Conc 33.8 % (30-36); Mean Corpuscular Hemoglobin 31.2 PG (26-34); Mean Corpuscular Volume 92.4 fL (80-100); Platelet Count 225 X10^3/uL (150-400)
[2025-06-21 09:26] LABS: Alanine Aminotransferase 17 IU/L (<50); Albumin 4.4 g/dL (3.5-5.0); Albumin Globulin Ratio 1.6 (1.0-2.8); Alkaline Phosphatase 70 U/L (38-126); Blood Urea Nitrogen 20 mg/dL (9-20); Calcium 10.0 mg/dL (8.4-10.2); Carbon Dioxide 29 mmol/L (22-32); Chloride 105 mmol/L (98-107); Cholesterol 130 mg/dL (140-199); Estimated Glomerular Filt Rate > 60 mL/min (>60); Globulin 2.7 g/dL (1.7-4.1); Glucose 105 mg/dL (70-99); HDL Cholesterol 63 mg/dL (40-60); HEMOLYSIS < 15 (0-50); Sodium 141 mmol/L (137-145); Total Protein 7.1 g/dL (6.3-8.2); Triglycerides 67 mg/dL (35-150)
[2025-06-21 09:27] LABS: Potassium 5.9 mmol/L (3.4-5.1)
[2025-06-21 09:56] LABS: Prostate Specific Antigen 1.52 ng/mL (0.10-4.00)
[2025-06-21 09:57] LABS: TSH w/ Reflex to FT4 1.44 uIU/mL (0.47-4.68)
[2025-06-21 15:19] LABS: Hep C Virus Ab w/Reflex Quant NEGATIVE s/c (NEGATIVE)
== END ==
PROVIDERS: PCP Internal Medicine; Referring Provider Internal Medicine; Visit Provider Internal Medicine
DX: E78.2 Mixed hyperlipidemia (principal); N40.1 Benign prostatic hyperplasia with lower urinary tract symptoms; N13.8 Other obstructive and reflux uropathy; M15.9 Polyosteoarthritis, unspecified; Z20.9 Contact with and (suspected) exposure to unspecified communicable disease
CPT/HCPCS: 36415; 80053; 80061; 84153; 84443; 85027; 86803